=== PATIENT | female | born 1940 | race Caucasian/White ===

== ENCOUNTER 2016-10-25 12:20 | Day surgery (SDC) | payer MEDICARE, BC ==
--- OUTSIDE RECORDS SUMMARY | 2016-10-25 12:28 | XMS REPORT | Summary of Care ---
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 Discharge Diagnosis: JEFFERY (generalized anxiety disorder) Discharge Disposition: 01 Discharged to Home or Self Care Attending Physician: Kaushik Mejia MD Referring Physician: Kaushik Mejia MD Vital Signs Most recent to oldest [Reference Range]: 1 Peripheral Pulse Rate [60-100 bpm] 76 bpm (11/05/15 8:45 AM) Respiratory Rate [12-20 br/min] 19 br/min (11/05/15 8:45 AM) SpO2 96 % (11/05/15 8:45 AM) Blood Pressure [90-130/60-90 mmHg] 122/76mmHg (11/05/15 8:45 AM) Mean Arterial Pressure, Cuff 91 mmHg (11/05/15 8:45 AM) Most recent to oldest [Reference Range]: 1 Height/Length Measured 160 cm (11/05/15 8:45 AM) Weight Dosing 132.7 kg (11/05/15 8:45 AM) Weight Measured 132.7 kg (11/05/15 8:45 AM) BSA Measured 2.27 m2 (11/05/15 8:45 AM) Body Mass Index Measured 51.84 kg/m2 (11/05/15 8:45 AM) Problem List Condition Effective Dates Status Health Status Informant Benign essential Active hypertension(Confirmed) DM - Diabetes mellitus(Confirmed) Active HLD - Hyperlipidemia(Confirmed) Active Acquired hypothyroidism NOS(Confirmed) Active PERSONAL HISTORY OF MALIGNANT NEOPLASM Active OF BREAST(Confirmed)1 1ICD-9 V10.3 Allergies, Adverse Reactions, Alerts Substance Reaction Severity Status Augmentin Active Medications acebutolol 400 mg, Oral, Daily, 0 Refill(s) Start Date: 10/05/13 Stop Date: 12/18/13 Status: Discontinuedacebutolol 400 mg oral capsule 1 cap(s), Oral, Daily, # 30 cap(s), 5 Refill(s), Start Date: 06/19/14 8:21:01 JAVA CONSULTANT, Pharmacy: [place], [place] Start Date: 06/19/14 Stop Date: 12/16/14 Status: Completedacebutolol 400 mg oral capsule 1 cap(s), Oral, Daily, # 30 cap(s), 5 Refill(s), Start Date: 12/16/14 8:51:16 CDT, Pharmacy: [place], [place] Start Date: 12/16/14 Stop Date: 06/19/15 Status: Completedacebutolol 400 mg oral capsule 1 cap(s), Oral, Daily, # 30 cap(s), 5 Refill(s), Start Date: 12/18/13 15:58:00 CDT, [facility] [place] Start Date: 12/18/13 Stop Date: 06/19/14 Status: Completedacebutolol 400 mg oral capsule 1 cap(s), Oral, Daily, # 30 cap(s), 5 Refill(s), Start Date: 06/19/15 13:33:51 JAVA CONSULTANT, Pharmacy: [place], [place] Start Date: 06/19/15 Status: Orderedalbuterol CFC free 90 mcg/inh inhalation aerosol 2 puff(s), Inhale, QID, PRN for wheezing, # 9 gm, 0 Refill(s), Start Date: 11/22 16:48:00 CDT, [facility] [place] Start Date: 11/22/14 Status: Orderedaliskiren 300 mg oral tablet 1 tab(s), Oral, Daily, This is in substitution of tekturna, # 30 tab(s), 2 Refill(s), Start Date: 07/23/15 10:54:00 JAVA CONSULTANT, Pharmacy: [place], [place] Special Instructions: This is in substitution of tekturna Start Date: 07/23/15 Stop Date: 11/11/15 Status: Completedaliskiren 300 mg oral tablet 1 tab(s), Oral, Daily, This is in substitution of tekturna, # 30 tab(s), 5 Refill(s), Start Date: 11/11/15 9:48:38 CDT, Pharmacy: [place], [place] Special Instructions: This is in substitution of tekturna Start Date: 11/11/15 Stop Date: 11/11/15 Status: DiscontinuedALPRAZolam 0.25 mg oral tablet 1 tab(s), Oral, TID, PRN for anxiety, faxed to [facility]) [phone], # 90 tab(s), 0 Refill(s) Special Instructions: faxed to [facility]) [phone] Start Date: 10/25/13 Stop Date: 11/19/13 Status: CompletedALPRAZolam 0.25 mg oral tablet 1 tab(s), Oral, TID, PRN for anxiety, faxed to [facility]) [phone], # 90 tab(s), 2 Refill(s), Start Date: 09/16/14 9:57:10 CDT Special Instructions: [facility] [phone] Start Date: 09/16/14 Stop Date: 12/19/14 Status: CompletedALPRAZolam 0.25 mg oral tablet 1 tab(s), Oral, TID, PRN for anxiety, faxed to [facility]) [phone], # 90 tab(s), 2 Refill(s), Start Date: 09/15/15 16:34:41 CDT Special Instructions: faxed to [facility]) [phone] Start Date: 09/15/15 Status: OrderedALPRAZolam 0.25 mg oral tablet 1 tab(s), Oral, TID, PRN for anxiety, faxed to [facility] ([facility]) [phone], # 90 tab(s), 0 Refill(s) Special Instructions: faxed to [facility]) [phone] Start Date: 11/19/13 Stop Date: 12/21/13 Status: CompletedALPRAZolam 0.25 mg oral tablet 1 tab(s), Oral, TID, PRN for anxiety, faxed to [facility]) [phone], # 90 tab(s), 0 Refill(s), Start Date: 03/18/14 15:41:27 CDT Special Instructions: [facility] [phone] Start Date: 03/18/14 Stop Date: 04/22/14 Status: CompletedALPRAZolam 0.25 mg oral tablet 1 tab(s), Oral, TID, PRN for anxiety, faxed to [facility]) [phone], # 90 tab(s), 0 Refill(s), Start Date: 04/22/14 14:59:13 JAVA CONSULTANT Special Instructions: [facility] [phone] Start Date: 04/22/14 Stop Date: 05/20/14 Status: CompletedALPRAZolam 0.25 mg oral tablet 1 tab(s), Oral, TID, PRN for anxiety, [facility] [phone], # 90 tab(s), 0 Refill(s), Start Date: 05/20/14 13:17:19 JAVA CONSULTANT Special Instructions: faxed to [facility]) [phone] Start Date: 05/20/14 Stop Date: 06/19/14 Status: CompletedALPRAZolam 0.25 mg oral tablet 1 tab(s), Oral, TID, PRN for anxiety, [facility] to [facility] [phone], # 90 tab(s), 2 Refill(s), Start Date: 06/19/14 8:17:06 JAVA CONSULTANT Special Instructions: faxed to [facility] ([place]) [phone] Start Date: 06/19/14 Stop Date: 09/16/14 Status: CompletedALPRAZolam 0.25 mg oral tablet 1 tab(s), Oral, TID, PRN for anxiety, faxed to [facility] ([place]) [phone], # 90 tab(s), 0 Refill(s) Special Instructions: faxed to [facility] ([place]) [phone] Start Date: 12/21/13 Stop Date: 01/21/14 Status: CompletedALPRAZolam 0.25 mg oral tablet 1 tab(s), Oral, TID, PRN for anxiety, faxed to [facility] ([place]) [phone], # 90 tab(s), 0 Refill(s) Special Instructions: faxed to [facility]) [phone] Start Date: 02/21/14 Stop Date: 03/18/14 Status: CompletedALPRAZolam 0.25 mg oral tablet 1 tab(s), Oral, TID, PRN for anxiety, faxed to [facility] ([place]) [phone], # 90 tab(s), 2 Refill(s), Start Date: 06/10/15 13:39:13 JAVA CONSULTANT Special Instructions: faxed to [facility] ([place]) [phone] Start Date: 06/10/15 Stop Date: 09/15/15 Status: CompletedALPRAZolam 0.25 mg oral tablet 1 tab(s), Oral, TID, PRN for anxiety, faxed to [facility]) [phone], # 90 tab(s), 0 Refill(s) Special Instructions: faxed to [facility] ([place]) [phone] Start Date: 09/24/13 Stop Date: 10/25/13 Status: CompletedALPRAZolam 0.25 mg oral tablet 1 tab(s), Oral, TID, PRN for anxiety, faxed to [facility] [phone], # 90 tab(s), 0 Refill(s) Special Instructions: faxed to [facility]) [phone] Start Date: 09/24/13 Stop Date: 09/24/13 Status: DiscontinuedALPRAZolam 0.25 mg oral tablet 1 tab(s), Oral, TID, PRN for anxiety, faxed to [facility]) [phone], # 90 tab(s), 2 Refill(s), Start Date: 03/20/15 13:33:01 CDT Special Instructions: faxed to [facility]) [phone] Start Date: 03/20/15 Stop Date: 06/10/15 Status: CompletedALPRAZolam 0.25 mg oral tablet 1 tab(s), Oral, TID, PRN for anxiety, faxed to [facility]) [phone], # 90 tab(s), 0 Refill(s) Special Instructions: faxed to [facility]) [phone] Start Date: 01/21/14 Stop Date: 02/21/14 Status: CompletedALPRAZolam 0.25 mg oral tablet 1 tab(s), Oral, TID, PRN for anxiety, faxed to [facility]) [phone], # 90 tab(s), 2 Refill(s), Start Date: 12/19/14 10:58:40 CDT Special Instructions: faxed to [facility]) [phone] Start Date: 12/19/14 Stop Date: 03/20/15 Status: CompletedAspirin Enteric Coated 81 mg, Oral, Daily, 0 Refill(s) Start Date: 10/08/13 Status: Orderedatorvastatin 20 mg oral tablet 1 tab(s), Oral, Daily, # 30 tab(s), 5 Refill(s), Start Date: 08/20/14 8:41:01 CDT, Pharmacy: [place], [place] Start Date: 08/20/14 Stop Date: 02/12/15 Status: Completedatorvastatin 20 mg oral tablet 1 tab(s), Oral, Daily, # 30 tab(s), 5 Refill(s), Start Date: 02/12/15 8:37:02 CDT, Pharm[place] Start Date: 02/12/15 Stop Date: 07/23/15 Status: Completedatorvastatin 20 mg oral tablet 1 tab(s), Oral, Daily, # 90 tab(s), 0 Refill(s), Pharmacy: [place] Start Date: 10/19/13 Stop Date: 10/22/14 Status: Completedatorvastatin 20 mg oral tablet 1 tab(s), Oral, Daily, # 90 tab(s), 0 Refill(s) Start Date: 10/19/13 Stop Date: 10/19/13 Status: Discontinuedatorvastatin 20 mg oral tablet 1 tab(s), Oral, Daily, # 30 tab(s), 5 Refill(s), Start Date: 08/19/14 8:52:22 CDT, [place] [facility] [place] Start Date: 08/19/14 Stop Date: 08/20/14 Status: Completedatorvastatin 20 mg oral tablet 1 tab(s), Oral, Daily, # 30 tab(s), 5 Refill(s), Start Date: 03/04/14 10:18:00 CDT, [place] [facility] [place] Start Date: 03/04/14 Stop Date: 08/19/14 Status: Completedatorvastatin 20 mg oral tablet 1 tab(s), Oral, Daily, # 30 tab(s), 5 Refill(s), Start Date: 07/23/15 10:50:37 JAVA CONSULTANT, [place] [place] Start Date: 07/23/15 Status: Orderedazithromycin 250 mg oral tablet 1 packet(s), Oral, Per Package Label, as directed on package labeling, # 6 tab(s ), 0 Refill(s), Start Date: 12/06/14 9:42:00 CDT, Pharm[place]: [place] Special Instructions: as directed on package labeling Start Date: 12/06/14 Stop Date: 01/09/15 Status: CompletedAzithromycin 5 Day Dose Pack 250 mg oral tablet 1 packet(s), Oral, Per Package Label, as directed on package labeling, # 6 tab(s ), 0 Refill(s), Start Date: 11/01/14 11:27:00 CDT, Pharmacy: [place] Special Instructions: as directed on package labeling Start Date: 11/01/14 Stop Date: 11/22/14 Status: CompletedAzithromycin 5 Day Dose Pack 250 mg oral tablet 1 packet(s), Oral, Per Package Label, as directed on package labeling, # 6 tab(s ), 0 Refill(s), Pharmacy: [facility] Special Instructions: as directed on package labeling Start Date: 01/22/14 Stop Date: 10/22/14 Status: CompletedbusPIRone 10 mg, Oral, TID, 0 Refill(s) Start Date: 10/05/13 Stop Date: 12/18/13 Status: DiscontinuedbusPIRone 10 mg oral tablet 0.5tab, Oral, TID, # 45 tab(s), 5 Refill(s), Start Date: 12/16/14 8:53:01 CDT, Pharmacy: [facility] Start Date: 12/16/14 Stop Date: 06/16/15 Status: CompletedbusPIRone 10 mg oral tablet 0.5tab, Oral, TID, # 45 tab(s), 5 Refill(s), Start Date: 12/18/13 8:17:00 CDT, Pharmacy: [facility] Start Date: 12/18/13 Stop Date: 06/17/14 Status: CompletedbusPIRone 10 mg oral tablet 0.5tab, Oral, TID, # 45 tab(s), 5 Refill(s), Start Date: 06/17/14 9:15:29 JAVA CONSULTANT, Pharmacy: [place] Start Date: 06/17/14 Stop Date: 12/16/14 Status: CompletedbusPIRone 10 mg oral tablet 0.5tab, Oral, TID, # 45 tab(s), 5 Refill(s), Start Date: 06/16/15 8:39:44 JAVA CONSULTANT, Pharmacy: [place], [place] Start Date: 06/16/15 Status: Orderedcefdinir 300 mg oral capsule 1 cap(s), Oral, q12hr, # 20 cap(s), 0 Refill(s), [facility] [place] Start Date: 12/13/13 Stop Date: 01/22/14 Status: Completeddiazepam 5 mg oral tablet 1 tab(s), Oral, TID, PRN forback pain, # 15 tab(s), 0 Refill(s) Start Date: 10/05/13 Stop Date: 10/08/13 Status: Completeddiazepam 5 mg oral tablet 1 tab(s), Oral, TID, PRN forback pain, [facility] [phone], # 15 tab(s), 0 Refill(s) Special Instructions: faxed to [facility]) [phone] Start Date: 10/08/13 Stop Date: 10/18/13 Status: Completeddiazepam 5 mg oral tablet 1 tab(s), Oral, TID, PRN forback pain, faxed to [facility]) [phone], # 15 tab(s), 0 Refill(s) Special Instructions: [facility] [phone] Start Date: 10/18/13 Stop Date: 11/22/14 Status: Discontinuedhydrochlorothiazide 25 mg oral tablet 1 tab(s), Oral, Daily, # 30 tab(s), 5 Refill(s), Start Date: 10/20/15 9:40:15 CDT, Pharmacy: [place] Start Date: 10/20/15 Status: Orderedhydrochlorothiazide 25 mg oral tablet 1 tab(s), Oral, Daily, # 30 tab(s), 5 Refill(s), Start Date: 10/19/13 10:23:00 CDT, Pharmacy: [place] Start Date: 10/19/13 Stop Date: 04/17/14 Status: Completedhydrochlorothiazide 25 mg oral tablet 1 tab(s), Oral, Daily, # 30 tab(s), 5 Refill(s) Start Date: 10/19/13 Stop Date: 10/19/13 Status: Discontinuedhydrochlorothiazide 25 mg oral tablet 1 tab(s), Oral, Daily, # 30 tab(s), 5 Refill(s), Start Date: 04/18/15 7:50:21 JAVA CONSULTANT, Pharmacy: [place] Start Date: 04/18/15 Stop Date: 10/20/15 Status: Completedhydrochlorothiazide 25 mg oral tablet 1 tab(s), Oral, Daily, # 30 tab(s), 5 Refill(s), Start Date: 04/17/14 8:42:55 JAVA CONSULTANT, Pharmacy: [place] Start Date: 04/17/14 Stop Date: 10/14/14 Status: Completedhydrochlorothiazide 25 mg oral tablet 1 tab(s), Oral, Daily, # 30 tab(s), 5 Refill(s), Start Date: 10/14/14 8:42:56 CDT, Pharmacy: [place] Start Date: 10/14/14 Stop Date: 04/18/15 Status: CompletedHYDROcodone-acetaminophen 10 mg-325 mg oral tablet 1 tab(s), Oral, q4hr, X 7 days, # 15 tab(s), 0 Refill(s) Start Date: 10/05/13 Stop Date: 10/08/13 Status: CompletedHYDROcodone-acetaminophen 10 mg-325 mg oral tablet 1 tab(s), Oral, q4hr, faxed to [facility]) [phone], X 7 days, # 15 tab( s), 0 Refill(s) Special Instructions: faxed to [facility]) [phone] Start Date: 10/08/13 Stop Date: 10/15/13 Status: CompletedHYDROcodone-acetaminophen 10 mg-325 mg oral tablet 1 tab(s), Oral, q4hr, PRN for pain, faxed to [facility] [phone], # 15 tab(s), 0 Refill(s) Special Instructions: faxed to [facility] [phone] Start Date: 10/18/13 Stop Date: 11/22/14 Status: DiscontinuedHYDROcodone-acetaminophen 10 mg-325 mg oral tablet 1 tab(s), Oral, q4hr, PRN for pain, 0 Refill(s) Start Date: 10/18/13 Stop Date: 10/18/13 Status: Discontinuedlevothyroxine 175 mcg (0.175 mg) oral tablet 1 tab(s), Oral, Daily, # 30 tab(s), 5 Refill(s), Start Date: 08/20/14 8:40:46 CDT, Pharmacy: [place] Start Date: 08/20/14 Stop Date: 02/12/15 Status: Completedlevothyroxine 175 mcg (0.175 mg) oral tablet 1 tab(s), Oral, Daily, # 30 tab(s), 2 Refill(s), [facility] [place] Start Date: 11/19/13 Stop Date: 02/15/14 Status: Completedlevothyroxine 175 mcg (0.175 mg) oral tablet 1 tab(s), Oral, Daily, # 30 tab(s), 5 Refill(s), Start Date: 02/12/15 8:36:39 CDT, [facility] [place] Start Date: 02/12/15 Stop Date: 07/23/15 Status: Completedlevothyroxine 175 mcg (0.175 mg) oral tablet 1 tab(s), Oral, Daily, # 30 tab(s), 5 Refill(s), Start Date: 08/19/14 8:52:14 CDT, Pharmacy: [place] Start Date: 08/19/14 Stop Date: 08/20/14 Status: Completedlevothyroxine 175 mcg (0.175 mg) oral tablet 1 tab(s), Oral, Daily, # 90 tab(s), 0 Refill(s) Start Date: 10/08/13 Stop Date: 11/19/13 Status: Discontinuedlevothyroxine 175 mcg (0.175 mg) oral tablet 1 tab(s), Oral, Daily, # 30 tab(s), 5 Refill(s), Start Date: 02/15/14 10:02:02 CDT, Pharmacy: [place] Start Date: 02/15/14 Stop Date: 08/19/14 Status: Completedlevothyroxine 175 mcg (0.175 mg) oral tablet 1 tab(s), Oral, Daily, # 30 tab(s), 5 Refill(s), Start Date: 07/23/15 10:50:26 JAVA CONSULTANT, [place] [facility] [place] Start Date: 07/23/15 Status: Orderedlisinopril 40 mg, Oral, Daily, 0 Refill(s) Start Date: 10/05/13 Stop Date: 12/18/13 Status: Discontinuedlisinopril 40 mg oral tablet 1 tab(s), Oral, Daily, # 30 tab(s), 5 Refill(s), Start Date: 12/16/14 8:52:38 CDT, Pharm[place] [facility] [place] Start Date: 12/16/14 Stop Date: 06/16/15 Status: Completedlisinopril 40 mg oral tablet 1 tab(s), Oral, Daily, # 30 tab(s), 5 Refill(s), Start Date: 12/18/13 8:17:00 CDT, [facility] [place] Start Date: 12/18/13 Stop Date: 06/17/14 Status: Completedlisinopril 40 mg oral tablet 1 tab(s), Oral, Daily, # 30 tab(s), 5 Refill(s), Start Date: 06/17/14 9:15:14 JAVA CONSULTANT, [place] [facility] [place] Start Date: 06/17/14 Stop Date: 12/16/14 Status: Completedlisinopril 40 mg oral tablet 1 tab(s), Oral, Daily, # 30 tab(s), 5 Refill(s), Start Date: 06/16/15 8:39:32 JAVA CONSULTANT, [place] [facility] [place] Start Date: 06/16/15 Status: Orderedloratadine 10 mg oral tablet 1 tab(s), Oral, Daily, # 30 tab(s), 0 Refill(s), Start Date: 11/22/14 16:48:00 CDT, [facility] [place] Start Date: 11/22/14 Stop Date: 01/09/15 Status: DiscontinuedmetFORMIN 1,000 mg, Oral, 0 Refill(s) Start Date: 10/05/13 Stop Date: 12/18/13 Status: DiscontinuedmetFORMIN 1000 mg oral tablet 1 tab(s), Oral, BID, # 60 tab(s), 5 Refill(s), Start Date: 12/17/14 9:38:11 CDT , [facility] [place] Start Date: 12/17/14 Stop Date: 06/16/15 Status: CompletedmetFORMIN 1000 mg oral tablet 1 tab(s), Oral, BID, # 60 tab(s), 5 Refill(s), Start Date: 06/17/14 9:15:40 JAVA CONSULTANT , [facility] [place] Start Date: 06/17/14 Stop Date: 12/17/14 Status: CompletedmetFORMIN 1000 mg oral tablet 1 tab(s), Oral, BID, # 60 tab(s), 5 Refill(s), Start Date: 12/18/13 8:17:00 CDT , [facility] [place] Start Date: 12/18/13 Stop Date: 06/17/14 Status: CompletedmetFORMIN 1000 mg oral tablet 1 tab(s), Oral, BID, # 60 tab(s), 5 Refill(s), Start Date: 06/16/15 8:40:01 JAVA CONSULTANT , Pharmacy: [place] Start Date: 06/16/15 Status: OrderedmetFORMIN 1000 mg oral tablet 1 tab(s), Oral, BID, # 60 tab(s), 5 Refill(s), Start Date: 12/17/14 9:27:09 CDT Start Date: 12/17/14 Stop Date: 12/17/14 Status: Completednystatin 100,000 units/g topical powder See Instructions, Apply to affected area 2 or 3 times daily., # 15 gm, 0 Refill( s), Start Date: 10/22/14 10:34:00 CDT, [facility] [place] Special Instructions: Apply to affected area 2 or 3 times daily. Start Date: 10/22/14 Stop Date: 11/22/14 Status: DiscontinuedOne Touch Ultra 2 Test Strips 3 Month Supply, Subcutaneous, BID, Test blood sugar twice daily, # 1 QS, 1 Refill(s), [facility] [place], Supply Special Instructions: Test blood sugar twice daily Start Date: 03/04/14 Stop Date: 03/14/15 Status: DiscontinuedOne Touch Ultra Blue Test Strips 200 each, Subcutaneous, BID, DX:e11.9, # 2 boxes, 2 Refill(s), [facility] [place] Special Instructions: DX:e11.9 Start Date: 06/19/15 Stop Date: 07/23/15 Status: CompletedOne Touch Ultra Blue Test Strips 200 each, Subcutaneous, BID, # 2 boxes, 2 Refill(s), [place], Supply Start Date: 03/14/15 Stop Date: 06/19/15 Status: CompletedOne Touch Ultra Blue Test Strips 200 EA, Subcutaneous, BID, # 2 boxes, 0 Refill(s), Supply Start Date: 03/14/15 Stop Date: 03/14/15 Status: DiscontinuedOne Touch Ultra Blue Test Strips 200 each, Subcutaneous, BID, DX:e11.9, # 2 boxes, 2 Refill(s), [facility] [place] Supply Special Instructions: DX:e11.9 Start Date: 07/23/15 Status: Orderedranitidine 150 mg oral tablet 1 tab(s), Oral, BID, # 60 tab(s), 5 Refill(s), Start Date: 12/18/13 8:21:00 CDT , [place] [facility] [place] Start Date: 12/18/13 Stop Date: 06/17/14 Status: Completedranitidine 150 mg oral tablet 1 tab(s), Oral, BID, # 60 tab(s), 5 Refill(s), Start Date: 12/16/14 8:51:58 CDT , [facility] [facility] Start Date: 12/16/14 Stop Date: 06/16/15 Status: Completedranitidine 150 mg oral tablet 1 tab(s), Oral, BID, # 60 tab(s), 5 Refill(s), Start Date: 06/16/15 8:39:52 JAVA CONSULTANT , Pharmacy: [place] Start Date: 06/16/15 Stop Date: 11/05/15 Status: Discontinuedranitidine 150 mg oral tablet 1 tab(s), Oral, BID, # 60 tab(s), 5 Refill(s), Start Date: 06/17/14 9:13:56 JAVA CONSULTANT , [place] [facility] [place] Start Date: 06/17/14 Stop Date: 12/16/14 Status: Completedsertraline 100 mg oral tablet 1 tab(s), Oral, Daily, # 30 tab(s), 5 Refill(s), Start Date: 10/20/15 9:40:24 CDT, [place]acy[place] [facility] [place] Start Date: 10/20/15 Status: Orderedsertraline 100 mg oral tablet 1 tab(s), Oral, Daily, # 30 tab(s), 5 Refill(s), Start Date: 10/19/13 10:22:00 CDT, [place]acy[place] [facility] [place] Start Date: 10/19/13 Stop Date: 04/17/14 Status: Completedsertraline 100 mg oral tablet 1 tab(s), Oral, Daily, # 30 tab(s), 5 Refill(s), Start Date: 04/18/15 7:50:37 JAVA CONSULTANT, [place]acy[place] [facility] [place] Start Date: 04/18/15 Stop Date: 10/20/15 Status: Completedsertraline 100 mg oral tablet 1 tab(s), Oral, Daily, # 30 tab(s), 5 Refill(s), Start Date: 04/17/14 8:43:04 JAVA CONSULTANT, [place]acy[place] [facility] Start Date: 04/17/14 Stop Date: 10/14/14 Status: Completedsertraline 100 mg oral tablet 1 tab(s), Oral, Daily, # 30 tab(s), 5 Refill(s), Start Date: 10/14/14 8:42:41 CDT, [place] [facility] [place] Start Date: 10/14/14 Stop Date: 04/18/15 Status: Completedsertraline 100 mg oral tablet 1 tab(s), Oral, Daily, # 30 tab(s), 0 Refill(s) Start Date: 10/08/13 Stop Date: 10/19/13 Status: DiscontinuedTekturna 300 mg oral tablet 1 tab(s), Oral, Daily, # 30 tab(s), 5 Refill(s), Start Date: 12/16/14 8:52:16 CDT, [place] [facility] [place] Start Date: 12/16/14 Stop Date: 06/10/15 Status: CompletedTekturna 300 mg oral tablet 1 tab(s), Oral, Daily, # 30 tab(s), 0 Refill(s) Start Date: 10/08/13 Stop Date: 12/20/13 Status: DiscontinuedTekturna 300 mg oral tablet 1 tab(s), Oral, Daily, # 30 tab(s), 5 Refill(s), Start Date: 12/20/13 9:40:00 CDT, [place] [facility] [place] Start Date: 12/20/13 Stop Date: 06/17/14 Status: CompletedTekturna 300 mg oral tablet 1 tab(s), Oral, Daily, # 30 tab(s), 5 Refill(s), Start Date: 06/10/15 13:38:43 JAVA CONSULTANT, [place] [facility] [place] Start Date: 06/10/15 Stop Date: 11/11/15 Status: CompletedTekturna 300 mg oral tablet 1 tab(s), Oral, Daily, # 30 tab(s), 5 Refill(s), Start Date: 06/17/14 9:14:19 JAVA CONSULTANT, [place]acy[place] [facility] Start Date: 06/17/14 Stop Date: 12/16/14 Status: CompletedTekturna 300 mg oral tablet 1 tab(s), Oral, Daily, # 30 tab(s), 5 Refill(s), Start Date: 11/11/15 13:45:38 CDT, [facility] [place] Start Date: 11/11/15 Status: Ordered Results Patient Viewable Results Most recent to oldest [Reference Range]: 1 Glycated Hemoglobin [4.5-6.2 %] 7.5 % *HI* (11/05/15 10:29 AM) Estimated Average Glucose [64-120 mg/dL] 164 mg/dL *HI* (11/05/15 10:29 AM) Immunizations No data available for this section Procedures Procedure Date Related Diagnosis Body Site Cholecystectomy Knee replacement Lumpectomy Tonsillectomy and adenoidectomy Social History No data available for this section Assessment and Plan No data available for this section
--- OUTSIDE RECORDS SUMMARY | 2016-10-25 12:28 | XMS REPORT | Continuity of Care Document ---
:1940 Author Organization [facility] ([facility]) Address [address] [place] [address] Phone [phone] Care Team Providers Name Role Phone Unavailable Primary Care Provider Unavailable Source Comments This disclosure is being made pursuant to the Care Everywhere program, applicable federal and state laws, and may not contain all informaitonavailable regarding this patient.[facility] ([facility]) Active Allergies and Adverse Reactions Not on File Current Medications Not on file Active Problems Not on file Social History Tobacco Use Types Packs/Day Years Used Date Never Assessed Plan of Care Health Maintenance Due Date Last Done Comments Hepatitis B Vaccine (1 of 3 - Primary Series) 1940 Tdap Vaccine 12/15/1950 Lipid Disorder Screening 12/15/1957 Td Vaccine 12/15/1957 Mammogram 1979 Colonoscopy 12/15/1989 Zoster Vaccine 1999 Osteoporosis Screening (DXA Bone Density) 12/15/2004 Pneumococcal Vaccine (1 of 2 - PCV13) 12/15/2004 HCC Annual Coding Diabetes without Complication 06/13/2015 Influenza Vaccine: Seasonal (#1) 01/12/2016 Results from Last 3 Months Not on file
--- OUTSIDE RECORDS SUMMARY | 2016-10-25 12:28 | XMS REPORT | Summary of Care ---
:1940 Author Organization [facility] Address [address] [place] [id number] Care Team Providers Name Role Phone Kaushik Mejia Primary Care Physician Encounter Date(s): 11/05/15 - 11/05/[address] [address] [facility] Discharge Diagnosis: Essential (primary) [...] cap(s), 5 Refill(s), Start Date: 06/19/14 8:21:01 PRESCRIPTION BENEFIT SPECIALIST, Pharmacy: [place], [place] Start Date: 06/19/14 Stop Date: 12/16/14 Status: Completedacebutolol 400 mg oral capsule 1 cap(s), Oral, Daily, # 30 cap(s), 5 Refill(s), Start Date: 12/16/14 8:51:16 CDT, Pharmacy: [place], [place] Start Date: 12/16/14 Stop Date: 06/19/15 Status: Completedacebutolol 400 mg oral capsule 1 cap(s), Oral, Daily, # 30 cap(s), 5 Refill(s), Start Date: 12/18/13 15:58:00 CDT, [facility] [place] Start Date: 12/18/13 Stop Date: 06/19/14 Status: Completedacebutolol 400 mg oral capsule 1 cap(s), Oral, Daily, # 30 cap(s), 5 Refill(s), Start Date: 06/19/15 13:33:51 PRESCRIPTION BENEFIT SPECIALIST, Pharmacy: [place], [place] Start Date: 06/19/15 Status: Orderedalbuterol CFC free 90 mcg/inh inhalation aerosol 2 puff(s), Inhale, QID, PRN for wheezing, # 9 gm, 0 Refill(s), Start Date: 11/22 16:48:00 CDT, [facility] [place] Start Date: 11/22/14 Status: Orderedaliskiren 300 mg oral tablet 1 tab(s), Oral, Daily, This is in substitution of tekturna, # 30 tab(s), 2 Refill(s), Start Date: 07/23/15 10:54:00 PRESCRIPTION BENEFIT SPECIALIST, Pharmacy: [place], [place] Special Instructions: This is in substitution of tekturna Start Date: 07/23/15 Stop Date: 11/11/15 Status: Completedaliskiren 300 mg oral tablet 1 tab(s), Oral, Daily, This is in substitution of tekturna, # 30 tab(s), 5 Refill(s), Start Date: 11/11/15 9:48:38 CDT, Pharmacy: [place], [place] Special Instructions: This is in substitution of tekturna Start Date: 11/11/15 Stop Date: 11/11/15 Status: DiscontinuedALPRAZolam 0.25 mg oral tablet 1 tab(s), Oral, TID, PRN for anxiety, [facility] [phone], # 90 tab(s), 0 Refill(s) Special Instructions: faxed to [facility] [phone] Start Date: 10/25/13 Stop Date: 11/19/13 Status: CompletedALPRAZolam 0.25 mg oral tablet 1 tab(s), Oral, TID, PRN for anxiety, faxed to [facility] [phone], # 90 tab(s), 2 Refill(s), Start Date: 09/16/14 9:57:10 CDT Special Instructions: [facility] [phone] Start Date: 09/16/14 Stop Date: 12/19/14 Status: CompletedALPRAZolam 0.25 mg oral tablet 1 tab(s), Oral, TID, PRN for anxiety, faxed to [facility] [phone], # 90 tab(s), 2 Refill(s), Start Date: 09/15/15 16:34:41 CDT Special Instructions: faxed to [facility] [phone] Start Date: 09/15/15 Status: OrderedALPRAZolam 0.25 mg oral tablet 1 tab(s), Oral, TID, PRN for anxiety, faxed to [facility] ([place]) [phone], # 90 tab(s), 0 Refill(s) Special Instructions: faxed to [facility] [phone] Start Date: 11/19/13 Stop Date: 12/21/13 Status: CompletedALPRAZolam 0.25 mg oral tablet 1 tab(s), Oral, TID, PRN for anxiety, faxed to [facility] [place] [phone], # 90 tab(s), 0 Refill(s), Start Date: 03/18/14 15:41:27 CDT Special Instructions: [facility] [place] [phone] Start Date: 03/18/14 Stop Date: 04/22/14 Status: CompletedALPRAZolam 0.25 mg oral tablet 1 tab(s), Oral, TID, PRN for anxiety, faxed to [facility] [phone], # 90 tab(s), 0 Refill(s), Start Date: 04/22/14 14:59:13 PRESCRIPTION BENEFIT SPECIALIST Special Instructions: [facility] [phone] Start Date: 04/22/14 Stop Date: 05/20/14 Status: CompletedALPRAZolam 0.25 mg oral tablet 1 tab(s), Oral, TID, PRN for anxiety, [facility] [phone], # 90 tab(s), 0 Refill(s), Start Date: 05/20/14 13:17:19 PRESCRIPTION BENEFIT SPECIALIST Special Instructions: faxed to [facility] [place] [phone] Start Date: 05/20/14 Stop Date: 06/19/14 Status: CompletedALPRAZolam 0.25 mg oral tablet 1 tab(s), Oral, TID, PRN for anxiety, [facility] [phone], # 90 tab(s), 2 Refill(s), Start Date: 06/19/14 8:17:06 PRESCRIPTION BENEFIT SPECIALIST Special Instructions: faxed to [facility] ([place]) [phone] Start Date: 06/19/14 Stop Date: 09/16/14 Status: CompletedALPRAZolam 0.25 mg oral tablet 1 tab(s), Oral, TID, PRN for anxiety, faxed to [facility] ([place]) [phone], # 90 tab(s), 0 Refill(s) Special Instructions: faxed to [facility] ([place]) [phone] Start Date: 12/21/13 Stop Date: 01/21/14 Status: CompletedALPRAZolam 0.25 mg oral tablet 1 tab(s), Oral, TID, PRN for anxiety, faxed to [facility] ([place]) [phone], # 90 tab(s), 0 Refill(s) Special Instructions: faxed to [facility] [phone] Start Date: 02/21/14 Stop Date: 03/18/14 Status: CompletedALPRAZolam 0.25 mg oral tablet 1 tab(s), Oral, TID, PRN for anxiety, faxed to [facility] ([place]) [phone], # 90 tab(s), 2 Refill(s), Start Date: 06/10/15 13:39:13 PRESCRIPTION BENEFIT SPECIALIST Special Instructions: faxed to [facility] ([place]) [phone] Start Date: 06/10/15 Stop Date: 09/15/15 Status: CompletedALPRAZolam 0.25 mg oral tablet 1 tab(s), Oral, TID, PRN for anxiety, faxed to [facility] ([facility]) [phone], # 90 tab(s), 0 Refill(s) Special Instructions: faxed to [facility] ([place]) [phone] Start Date: 09/24/13 Stop Date: 10/25/13 Status: CompletedALPRAZolam 0.25 mg oral tablet 1 tab(s), Oral, TID, PRN for anxiety, faxed to [facility] ([facility]) [phone], # 90 tab(s), 0 Refill(s) Special Instructions: faxed to [facility] [phone] Start Date: 09/24/13 Stop Date: 09/24/13 Status: DiscontinuedALPRAZolam 0.25 mg oral tablet 1 tab(s), Oral, TID, PRN for anxiety, faxed to [facility] [phone], # 90 tab(s), 2 Refill(s), Start Date: 03/20/15 13:33:01 CDT Special Instructions: faxed to [facility] [phone] Start Date: 03/20/15 Stop Date: 06/10/15 Status: CompletedALPRAZolam 0.25 mg oral tablet 1 tab(s), Oral, TID, PRN for anxiety, faxed to [facility] [phone], # 90 tab(s), 0 Refill(s) Special Instructions: faxed to [facility] [phone] Start Date: 01/21/14 Stop Date: 02/21/14 Status: CompletedALPRAZolam 0.25 mg oral tablet 1 tab(s), Oral, TID, PRN for anxiety, faxed to [facility] [phone], # 90 tab(s), 2 Refill(s), Start Date: 12/19/14 10:58:40 CDT Special Instructions: faxed to [facility] [phone] Start Date: 12/19/14 Stop Date: 03/20/15 Status: CompletedAspirin Enteric Coated 81 mg, Oral, Daily, 0 Refill(s) Start Date: 10/08/13 Status: Orderedatorvastatin 20 mg oral tablet 1 tab(s), Oral, Daily, # 30 tab(s), 5 Refill(s), Start Date: 08/20/14 8:41:01 CDT, Pharmacy: [place], [place] Start Date: 08/20/14 Stop Date: 02/12/15 Status: Completedatorvastatin 20 mg oral tablet 1 tab(s), Oral, Daily, # 30 tab(s), 5 Refill(s), Start Date: 02/12/15 8:37:02 CDT, [place] [facility] Start Date: 02/12/15 Stop Date: 07/23/15 Status: Completedatorvastatin 20 mg oral tablet 1 tab(s), Oral, Daily, # 90 tab(s), 0 Refill(s), Pharmacy: [facility] Start Date: 10/19/13 Stop Date: 10/22/14 Status: Completedatorvastatin 20 mg oral tablet 1 tab(s), Oral, Daily, # 90 tab(s), 0 Refill(s) Start Date: 10/19/13 Stop Date: 10/19/13 Status: Discontinuedatorvastatin 20 mg oral tablet 1 tab(s), Oral, Daily, # 30 tab(s), 5 Refill(s), Start Date: 08/19/14 8:52:22 CDT, Pharm[place] Start Date: 08/19/14 Stop Date: 08/20/14 Status: Completedatorvastatin 20 mg oral tablet 1 tab(s), Oral, Daily, # 30 tab(s), 5 Refill(s), Start Date: 03/04/14 10:18:00 CDT, Pharm[place] [facility] Start Date: 03/04/14 Stop Date: 08/19/14 Status: Completedatorvastatin 20 mg oral tablet 1 tab(s), Oral, Daily, # 30 tab(s), 5 Refill(s), Start Date: 07/23/15 10:50:37 PRESCRIPTION BENEFIT SPECIALIST, [place] [facility] Start Date: 07/23/15 Status: Orderedazithromycin 250 mg oral tablet 1 packet(s), Oral, Per Package Label, as directed on package labeling, # 6 tab(s ), 0 Refill(s), Start Date: 12/06/14 9:42:00 CDT, [place] [facility] Special Instructions: as directed on package labeling Start Date: 12/06/14 Stop Date: 01/09/15 Status: CompletedAzithromycin 5 Day Dose Pack 250 mg oral tablet 1 packet(s), Oral, Per Package Label, as directed on package labeling, # 6 tab(s ), 0 Refill(s), Start Date: 11/01/14 11:27:00 CDT, Pharmacy: [facility] Special Instructions: as directed on package labeling Start Date: 11/01/14 Stop Date: 11/22/14 Status: CompletedAzithromycin 5 Day Dose Pack 250 mg oral tablet 1 packet(s), Oral, Per Package Label, as directed on package labeling, # 6 tab(s ), 0 Refill(s), Pharmacy: [facility] Special Instructions: as directed on package labeling Start Date: 01/22/14 Stop Date: 10/22/14 Status: CompletedbusPIRone 10 mg, Oral, TID, 0 Refill(s) Start Date: 10/05/13 Stop Date: 12/18/13 Status: DiscontinuedbusPIRone 10 mg oral tablet 0.5tab, Oral, TID, # 45 tab(s), 5 Refill(s), Start Date: 12/16/14 8:53:01 CDT, Pharmacy: [facility] Start Date: 12/16/14 Stop Date: 06/16/15 Status: CompletedbusPIRone 10 mg oral tablet 0.5tab, Oral, TID, # 45 tab(s), 5 Refill(s), Start Date: 12/18/13 8:17:00 CDT, Pharmacy: [facility] Start Date: 12/18/13 Stop Date: 06/17/14 Status: CompletedbusPIRone 10 mg oral tablet 0.5tab, Oral, TID, # 45 tab(s), 5 Refill(s), Start Date: 06/17/14 9:15:29 PRESCRIPTION BENEFIT SPECIALIST, Pharmacy: [facility] Start Date: 06/17/14 Stop Date: 12/16/14 Status: CompletedbusPIRone 10 mg oral tablet 0.5tab, Oral, TID, # 45 tab(s), 5 Refill(s), Start Date: 06/16/15 8:39:44 PRESCRIPTION BENEFIT SPECIALIST, [place]acy[place] [place] Start Date: 06/16/15 Status: Orderedcefdinir 300 mg oral capsule 1 cap(s), Oral, q12hr, # 20 cap(s), 0 Refill(s), [facility] [place] Start Date: 12/13/13 Stop Date: 01/22/14 Status: Completeddiazepam 5 mg oral tablet 1 tab(s), Oral, TID, PRN forback pain, # 15 tab(s), 0 Refill(s) Start Date: 10/05/13 Stop Date: 10/08/13 Status: Completeddiazepam 5 mg oral tablet 1 tab(s), Oral, TID, PRN forback pain, [facility] [phone], # 15 tab(s), 0 Refill(s) Special Instructions: faxed to [facility] [phone] Start Date: 10/08/13 Stop Date: 10/18/13 Status: Completeddiazepam 5 mg oral tablet 1 tab(s), Oral, TID, PRN forback pain, faxed to [facility] [phone], # 15 tab(s), 0 Refill(s) Special Instructions: [facility] [phone] Start Date: 10/18/13 Stop Date: 11/22/14 Status: Discontinuedhydrochlorothiazide 25 mg oral tablet 1 tab(s), Oral, Daily, # 30 tab(s), 5 Refill(s), Start Date: 10/20/15 9:40:15 CDT, Pharmacy: [place] Start Date: 10/20/15 Status: Orderedhydrochlorothiazide 25 mg oral tablet 1 tab(s), Oral, Daily, # 30 tab(s), 5 Refill(s), Start Date: 10/19/13 10:23:00 CDT, Pharmacy: [place] Start Date: 10/19/13 Stop Date: 04/17/14 Status: Completedhydrochlorothiazide 25 mg oral tablet 1 tab(s), Oral, Daily, # 30 tab(s), 5 Refill(s) Start Date: 10/19/13 Stop Date: 10/19/13 Status: Discontinuedhydrochlorothiazide 25 mg oral tablet 1 tab(s), Oral, Daily, # 30 tab(s), 5 Refill(s), Start Date: 04/18/15 7:50:21 PRESCRIPTION BENEFIT SPECIALIST, Pharmacy: [place] Start Date: 04/18/15 Stop Date: 10/20/15 Status: Completedhydrochlorothiazide 25 mg oral tablet 1 tab(s), Oral, Daily, # 30 tab(s), 5 Refill(s), Start Date: 04/17/14 8:42:55 PRESCRIPTION BENEFIT SPECIALIST, Pharmacy: [place] Start Date: 04/17/14 Stop Date: 10/14/14 Status: Completedhydrochlorothiazide 25 mg oral tablet 1 tab(s), Oral, Daily, # 30 tab(s), 5 Refill(s), Start Date: 10/14/14 8:42:56 CDT, Pharmacy: [place] Start Date: 10/14/14 Stop Date: 04/18/15 Status: CompletedHYDROcodone-acetaminophen 10 mg-325 mg oral tablet 1 tab(s), Oral, q4hr, X 7 days, # 15 tab(s), 0 Refill(s) Start Date: 10/05/13 Stop Date: 10/08/13 Status: CompletedHYDROcodone-acetaminophen 10 mg-325 mg oral tablet 1 tab(s), Oral, q4hr, faxed to [facility] [phone], X 7 days, # 15 tab( s), 0 Refill(s) Special Instructions: faxed to [facility] [phone] Start Date: 10/08/13 Stop Date: 10/15/13 Status: CompletedHYDROcodone-acetaminophen 10 mg-325 mg oral tablet 1 tab(s), Oral, q4hr, PRN for pain, faxed to [facility] [phone], # 15 tab(s), 0 Refill(s) Special Instructions: faxed to [facility] [phone] Start Date: 10/18/13 Stop Date: 11/22/14 Status: DiscontinuedHYDROcodone-acetaminophen 10 mg-325 mg oral tablet 1 tab(s), Oral, q4hr, PRN for pain, 0 Refill(s) Start Date: 10/18/13 Stop Date: 10/18/13 Status: Discontinuedlevothyroxine 175 mcg (0.175 mg) oral tablet 1 tab(s), Oral, Daily, # 30 tab(s), 5 Refill(s), Start Date: 08/20/14 8:40:46 CDT, Pharmacy: [place] Start Date: 08/20/14 Stop Date: 02/12/15 Status: Completedlevothyroxine 175 mcg (0.175 mg) oral tablet 1 tab(s), Oral, Daily, # 30 tab(s), 2 Refill(s), [facility] [place] Start Date: 11/19/13 Stop Date: 02/15/14 Status: Completedlevothyroxine 175 mcg (0.175 mg) oral tablet 1 tab(s), Oral, Daily, # 30 tab(s), 5 Refill(s), Start Date: 02/12/15 8:36:39 CDT, [facility] [place] Start Date: 02/12/15 Stop Date: 07/23/15 Status: Completedlevothyroxine 175 mcg (0.175 mg) oral tablet 1 tab(s), Oral, Daily, # 30 tab(s), 5 Refill(s), Start Date: 08/19/14 8:52:14 CDT, Pharmacy: [place] Start Date: 08/19/14 Stop Date: 08/20/14 Status: Completedlevothyroxine 175 mcg (0.175 mg) oral tablet 1 tab(s), Oral, Daily, # 90 tab(s), 0 Refill(s) Start Date: 10/08/13 Stop Date: 11/19/13 Status: Discontinuedlevothyroxine 175 mcg (0.175 mg) oral tablet 1 tab(s), Oral, Daily, # 30 tab(s), 5 Refill(s), Start Date: 02/15/14 10:02:02 CDT, Pharm[place] Start Date: 02/15/14 Stop Date: 08/19/14 Status: Completedlevothyroxine 175 mcg (0.175 mg) oral tablet 1 tab(s), Oral, Daily, # 30 tab(s), 5 Refill(s), Start Date: 07/23/15 10:50:26 PRESCRIPTION BENEFIT SPECIALIST, Pharm[place] Start Date: 07/23/15 Status: Orderedlisinopril 40 mg, Oral, Daily, 0 Refill(s) Start Date: 10/05/13 Stop Date: 12/18/13 Status: Discontinuedlisinopril 40 mg oral tablet 1 tab(s), Oral, Daily, # 30 tab(s), 5 Refill(s), Start Date: 12/16/14 8:52:38 CDT, Pharmacy[place] Start Date: 12/16/14 Stop Date: 06/16/15 Status: Completedlisinopril 40 mg oral tablet 1 tab(s), Oral, Daily, # 30 tab(s), 5 Refill(s), Start Date: 12/18/13 8:17:00 CDT, [facility] [place] Start Date: 12/18/13 Stop Date: 06/17/14 Status: Completedlisinopril 40 mg oral tablet 1 tab(s), Oral, Daily, # 30 tab(s), 5 Refill(s), Start Date: 06/17/14 9:15:14 PRESCRIPTION BENEFIT SPECIALIST, Pharmacy[place] Start Date: 06/17/14 Stop Date: 12/16/14 Status: Completedlisinopril 40 mg oral tablet 1 tab(s), Oral, Daily, # 30 tab(s), 5 Refill(s), Start Date: 06/16/15 8:39:32 PRESCRIPTION BENEFIT SPECIALIST, Pharm[place] Start Date: 06/16/15 Status: Orderedloratadine 10 mg oral tablet 1 tab(s), Oral, Daily, # 30 tab(s), 0 Refill(s), Start Date: 11/22/14 16:48:00 CDT, [facility] [place] Start Date: 11/22/14 Stop Date: 01/09/15 Status: DiscontinuedmetFORMIN 1,000 mg, Oral, 0 Refill(s) Start Date: 10/05/13 Stop Date: 12/18/13 Status: DiscontinuedmetFORMIN 1000 mg oral tablet 1 tab(s), Oral, BID, # 60 tab(s), 5 Refill(s), Start Date: 12/17/14 9:38:11 CDT , [facility] [place] Start Date: 12/17/14 Stop Date: 06/16/15 Status: CompletedmetFORMIN 1000 mg oral tablet 1 tab(s), Oral, BID, # 60 tab(s), 5 Refill(s), Start Date: 06/17/14 9:15:40 PRESCRIPTION BENEFIT SPECIALIST , [facility] [place] Start Date: 06/17/14 Stop Date: 12/17/14 Status: CompletedmetFORMIN 1000 mg oral tablet 1 tab(s), Oral, BID, # 60 tab(s), 5 Refill(s), Start Date: 12/18/13 8:17:00 CDT , [facility] [place] Start Date: 12/18/13 Stop Date: 06/17/14 Status: CompletedmetFORMIN 1000 mg oral tablet 1 tab(s), Oral, BID, # 60 tab(s), 5 Refill(s), Start Date: 06/16/15 8:40:01 PRESCRIPTION BENEFIT SPECIALIST , Pharmacy: [place] Start Date: 06/16/15 Status: OrderedmetFORMIN 1000 mg oral tablet 1 tab(s), Oral, BID, # 60 tab(s), 5 Refill(s), Start Date: 12/17/14 9:27:09 CDT Start Date: 12/17/14 Stop Date: 12/17/14 Status: Completednystatin 100,000 units/g topical powder See Instructions, Apply to affected area 2 or 3 times daily., # 15 gm, 0 Refill( s), Start Date: 10/22/14 10:34:00 CDT, [facility] [place] Special Instructions: Apply to affected area 2 or 3 times daily. Start Date: 10/22/14 Stop Date: 11/22/14 Status: DiscontinuedOne Touch Ultra 2 Test Strips 3 Month Supply, Subcutaneous, BID, Test blood sugar twice daily, # 1 QS, 1 Refill(s), [facility] [place], Supply Special Instructions: Test blood sugar twice daily Start Date: 03/04/14 Stop Date: 03/14/15 Status: DiscontinuedOne Touch Ultra Blue Test Strips 200 each, Subcutaneous, BID, DX:e11.9, # 2 boxes, 2 Refill(s), [facility] [place] Supply Special Instructions: DX:e11.9 Start Date: 06/19/15 Stop Date: 07/23/15 Status: CompletedOne Touch Ultra Blue Test Strips 200 each, Subcutaneous, BID, # 2 boxes, 2 Refill(s), [place], Supply Start Date: 03/14/15 Stop Date: 06/19/15 Status: CompletedOne Touch Ultra Blue Test Strips 200 EA, Subcutaneous, BID, # 2 boxes, 0 Refill(s), Supply Start Date: 03/14/15 Stop Date: 03/14/15 Status: DiscontinuedOne Touch Ultra Blue Test Strips 200 each, Subcutaneous, BID, DX:e11.9, # 2 boxes, 2 Refill(s), [facility] [place] Supply Special Instructions: DX:e11.9 Start Date: 07/23/15 Status: Orderedranitidine 150 mg oral tablet 1 tab(s), Oral, BID, # 60 tab(s), 5 Refill(s), Start Date: 12/18/13 8:21:00 CDT , Pharmacy: [place] Start Date: 12/18/13 Stop Date: 06/17/14 Status: Completedranitidine 150 mg oral tablet 1 tab(s), Oral, BID, # 60 tab(s), 5 Refill(s), Start Date: 12/16/14 8:51:58 CDT , [place] [facility] Start Date: 12/16/14 Stop Date: 06/16/15 Status: Completedranitidine 150 mg oral tablet 1 tab(s), Oral, BID, # 60 tab(s), 5 Refill(s), Start Date: 06/16/15 8:39:52 PRESCRIPTION BENEFIT SPECIALIST , Pharmacy[place] [facility] Start Date: 06/16/15 Stop Date: 11/05/15 Status: Discontinuedranitidine 150 mg oral tablet 1 tab(s), Oral, BID, # 60 tab(s), 5 Refill(s), Start Date: 06/17/14 9:13:56 PRESCRIPTION BENEFIT SPECIALIST , [place] Start Date: 06/17/14 Stop Date: 12/16/14 Status: Completedsertraline 100 mg oral tablet 1 tab(s), Oral, Daily, # 30 tab(s), 5 Refill(s), Start Date: 10/20/15 9:40:24 CDT, Pharmacy[place] Start Date: 10/20/15 Status: Orderedsertraline 100 mg oral tablet 1 tab(s), Oral, Daily, # 30 tab(s), 5 Refill(s), Start Date: 10/19/13 10:22:00 CDT, Pharmacy[place] Start Date: 10/19/13 Stop Date: 04/17/14 Status: Completedsertraline 100 mg oral tablet 1 tab(s), Oral, Daily, # 30 tab(s), 5 Refill(s), Start Date: 04/18/15 7:50:37 PRESCRIPTION BENEFIT SPECIALIST, Pharmacy[place] Start Date: 04/18/15 Stop Date: 10/20/15 Status: Completedsertraline 100 mg oral tablet 1 tab(s), Oral, Daily, # 30 tab(s), 5 Refill(s), Start Date: 04/17/14 8:43:04 PRESCRIPTION BENEFIT SPECIALIST, Pharmacy[place] Start Date: 04/17/14 Stop Date: 10/14/14 Status: Completedsertraline 100 mg oral tablet 1 tab(s), Oral, Daily, # 30 tab(s), 5 Refill(s), Start Date: 10/14/14 8:42:41 CDT, Pharmacy[place] Start Date: 10/14/14 Stop Date: 04/18/15 Status: Completedsertraline 100 mg oral tablet 1 tab(s), Oral, Daily, # 30 tab(s), 0 Refill(s) Start Date: 10/08/13 Stop Date: 10/19/13 Status: DiscontinuedTekturna 300 mg oral tablet 1 tab(s), Oral, Daily, # 30 tab(s), 5 Refill(s), Start Date: 12/16/14 8:52:16 CDT, Pharm[place] Start Date: 12/16/14 Stop Date: 06/10/15 Status: CompletedTekturna 300 mg oral tablet 1 tab(s), Oral, Daily, # 30 tab(s), 0 Refill(s) Start Date: 10/08/13 Stop Date: 12/20/13 Status: DiscontinuedTekturna 300 mg oral tablet 1 tab(s), Oral, Daily, # 30 tab(s), 5 Refill(s), Start Date: 12/20/13 9:40:00 CDT, [place] Start Date: 12/20/13 Stop Date: 06/17/14 Status: CompletedTekturna 300 mg oral tablet 1 tab(s), Oral, Daily, # 30 tab(s), 5 Refill(s), Start Date: 06/10/15 13:38:43 PRESCRIPTION BENEFIT SPECIALIST, [place]acy[place] Start Date: 06/10/15 Stop Date: 11/11/15 Status: CompletedTekturna 300 mg oral tablet 1 tab(s), Oral, Daily, # 30 tab(s), 5 Refill(s), Start Date: 06/17/14 9:14:19 PRESCRIPTION BENEFIT SPECIALIST, Pharmacy[place] Start Date: 06/17/14 Stop Date: 12/16/14 Status: CompletedTekturna 300 mg oral tablet 1 tab(s), Oral, Daily, # 30 tab(s), 5 Refill(s), Start Date: 11/11/15 13:45:38 CDT, [place] [facility] [place] Start Date: 11/11/15 Status: Ordered Results [...]
--- OUTSIDE RECORDS SUMMARY | 2016-10-25 12:28 | XMS REPORT | Summary of Care ---
:1940 Author Organization [facility] Address [address] [place] [address] Care Team Providers Name Role Phone Kaushik Mejia Primary Care Physician Encounter Date(s): 10/28/15 - 10/28/15 [facility] [address] [place] [address]- [facility] Discharge Disposition: 01 Discharged to Home or Self Care Attending Physician: JESSICA Hernandez Admitting Physician: JESSICA Hernandez Referring Physician: JESSICA Hernandez Vital Signs Most recent to oldest [Reference Range]: 1 Temperature Temporal Artery [36.5-38.0 DegC] 35.9 DegC *LOW* (10/28/15 9:57 AM) Peripheral Pulse Rate [60-100 bpm] 76 bpm (10/28/15 9:57 AM) Respiratory Rate [12-20 br/min] 18 br/min (10/28/15 9:57 AM) SpO2 95 % (10/28/15 9:57 AM) Blood Pressure [90-130/60-90 mmHg] 190/76mmHg *HI* (10/28/15 9:57 AM) Mean Arterial Pressure, Cuff 114 mmHg (10/28/15 9:57 AM) Most recent to oldest [Reference Range]: 1 Height/Length Measured 160 cm (10/28/15 9:57 AM) Height/Length Estimated 160 cm (10/28/15 9:57 AM) Weight Estimated 134 kg (10/28/15 9:57 AM) Weight Dosing 134 kg (10/28/15 9:57 AM) Weight Measured 134 kg (10/28/15 9:57 AM) BSA Measured 2.28 m2 (10/28/15 9:57 AM) BSA Estimated 2.44 m2 (10/28/15 9:57 AM) Body Mass Index Measured 52.34 kg/m2 (10/28/15 9:57 AM) Body Mass Index Estimated 52.34 kg/m2 (10/28/15 9:57 AM) Problem List Condition Effective Dates Status [...] cap(s), 5 Refill(s), Start Date: 06/19/14 8:21:01 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, 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[place], [place] Start Date: 06/19/14 Stop Date: 12/16/14 Status: Completedacebutolol 400 mg oral capsule 1 cap(s), Oral, Daily, # 30 cap(s), 5 Refill(s), Start Date: 12/16/14 8:51:16 CDT, Pharmacy: [place], [place] Start Date: 12/16/14 Stop Date: 06/19/15 Status: Completedacebutolol 400 mg oral capsule 1 cap(s), Oral, Daily, # 30 cap(s), 5 Refill(s), Start Date: 12/18/13 15:58:00 CDT, Pharmacy: [place], [place] Start Date: 12/18/13 Stop Date: 06/19/14 Status: Completedacebutolol 400 mg oral capsule 1 cap(s), Oral, Daily, # 30 cap(s), 5 Refill(s), Start Date: 06/19/15 13:33:51 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, 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[place], [place] Start Date: 06/19/15 Status: Orderedalbuterol CFC free 90 mcg/inh inhalation aerosol 2 puff(s), Inhale, QID, PRN for wheezing, # 9 gm, 0 Refill(s), Start Date: 11/22 16:48:00 CDT, Pharmacy: [place], [place] Start Date: 11/22/14 Status: Orderedaliskiren 300 mg oral tablet 1 tab(s), Oral, Daily, This is in substitution of tekturna, # 30 tab(s), 2 Refill(s), Start Date: 07/23/15 10:54:00 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, 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[place], [place] Special Instructions: This is in substitution of tekturna Start Date: 07/23/15 Status: OrderedALPRAZolam 0.25 mg oral tablet 1 tab(s), Oral, TID, PRN for anxiety, [facility] [phone], # 90 tab(s), 0 Refill(s) Special Instructions: faxed to [facility] [phone] Start Date: 10/25/13 Stop Date: 11/19/13 Status: CompletedALPRAZolam 0.25 mg oral tablet 1 tab(s), Oral, TID, PRN for anxiety, faxed to [facility] [phone], # 90 tab(s), 2 Refill(s), Start Date: 09/16/14 9:57:10 CDT Special Instructions: [facility] [phone] Start Date: 09/16/14 Stop Date: 12/19/14 Status: CompletedALPRAZolam 0.25 mg oral tablet 1 tab(s), Oral, TID, PRN for anxiety, faxed to [facility] [phone], # 90 tab(s), 2 Refill(s), Start Date: 09/15/15 16:34:41 CDT Special Instructions: faxed to [facility] [phone] Start Date: 09/15/15 Status: OrderedALPRAZolam 0.25 mg oral tablet 1 tab(s), Oral, TID, PRN for anxiety, faxed to [facility] ([place]) [phone], # 90 tab(s), 0 Refill(s) Special Instructions: faxed to [facility] ([place]) [phone] Start Date: 11/19/13 Stop Date: 12/21/13 Status: CompletedALPRAZolam 0.25 mg oral tablet 1 tab(s), Oral, TID, PRN for anxiety, faxed to [facility] ([place]) [phone], # 90 tab(s), 0 Refill(s), Start Date: 03/18/14 15:41:27 CDT Special Instructions: faxed to [facility] ([place]) [phone] Start Date: 03/18/14 Stop Date: 04/22/14 Status: CompletedALPRAZolam 0.25 mg oral tablet 1 tab(s), Oral, TID, PRN for anxiety, faxed to [facility] ([place]) [phone], # 90 tab(s), 0 Refill(s), Start Date: 04/22/14 14:59:13 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 Special Instructions: faxed to [facility] ([place]) [phone] Start Date: 04/22/14 Stop Date: 05/20/14 Status: CompletedALPRAZolam 0.25 mg oral tablet 1 tab(s), Oral, TID, PRN for anxiety, faxed to [facility] ([place]) [phone], # 90 tab(s), 0 Refill(s), Start Date: 05/20/14 13:17:19 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 Special Instructions: faxed to [facility] ([place]) [phone] Start Date: 05/20/14 Stop Date: 06/19/14 Status: CompletedALPRAZolam 0.25 mg oral tablet 1 tab(s), Oral, TID, PRN for anxiety, [facility] [phone], # 90 tab(s), 2 Refill(s), Start Date: 06/19/14 8:17:06 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 Special Instructions: [facility] to [facility] [phone] Start Date: 06/19/14 Stop Date: 09/16/14 Status: CompletedALPRAZolam 0.25 mg oral tablet 1 tab(s), Oral, TID, PRN for anxiety, [place]ed to [facility] [phone], # 90 tab(s), 0 Refill(s) Special Instructions: faxed to [facility] [phone] Start Date: 12/21/13 Stop Date: 01/21/14 Status: CompletedALPRAZolam 0.25 mg oral tablet 1 tab(s), Oral, TID, PRN for anxiety, faxed to [facility] [phone], # 90 tab(s), 0 Refill(s) Special Instructions: faxed to [facility] [phone] Start Date: 02/21/14 Stop Date: 03/18/14 Status: CompletedALPRAZolam 0.25 mg oral tablet 1 tab(s), Oral, TID, PRN for anxiety, faxed to [facility] [phone], # 90 tab(s), 2 Refill(s), Start Date: 06/10/15 13:39:13 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 Special Instructions: faxed to [facility] [phone] Start Date: 06/10/15 Stop Date: 09/15/15 Status: CompletedALPRAZolam 0.25 mg oral tablet 1 tab(s), Oral, TID, PRN for anxiety, faxed to [facility]) [phone], # 90 tab(s), 0 Refill(s) Special Instructions: faxed to [facility] [phone] Start Date: 09/24/13 Stop Date: 10/25/13 Status: CompletedALPRAZolam 0.25 mg oral tablet 1 tab(s), Oral, TID, PRN for anxiety, faxed to [facility]) [phone], # 90 tab(s), 0 Refill(s) Special Instructions: faxed to [facility] [phone] Start Date: 09/24/13 Stop Date: 09/24/13 Status: DiscontinuedALPRAZolam 0.25 mg oral tablet 1 tab(s), Oral, TID, PRN for anxiety, faxed to [facility] [phone], # 90 tab(s), 2 Refill(s), Start Date: 03/20/15 13:33:01 CDT Special Instructions: faxed to [facility] [phone] Start Date: 03/20/15 Stop Date: 06/10/15 Status: CompletedALPRAZolam 0.25 mg oral tablet 1 tab(s), Oral, TID, PRN for anxiety, [facility] [phone], # 90 tab(s), 0 Refill(s) Special Instructions: faxed to [facility] [phone] Start Date: 01/21/14 Stop Date: 02/21/14 Status: CompletedALPRAZolam 0.25 mg oral tablet 1 tab(s), Oral, TID, PRN for anxiety, [facility] [phone], # 90 tab(s), 2 Refill(s), Start Date: 12/19/14 10:58:40 CDT Special Instructions: faxed to [facility] [phone] Start Date: 12/19/14 Stop Date: 03/20/15 Status: CompletedAspirin Enteric Coated 81 mg, Oral, Daily, 0 Refill(s) Start Date: 10/08/13 Status: Orderedatorvastatin 20 mg oral tablet 1 tab(s), Oral, Daily, # 30 tab(s), 5 Refill(s), Start Date: 08/20/14 8:41:01 CDT, Pharmacy: [place], [place] Start Date: 08/20/14 Stop Date: 02/12/15 Status: Completedatorvastatin 20 mg oral tablet 1 tab(s), Oral, Daily, # 30 tab(s), 5 Refill(s), Start Date: 02/12/15 8:37:02 CDT, [facility] [place] Start Date: 02/12/15 Stop Date: 07/23/15 Status: Completedatorvastatin 20 mg oral tablet 1 tab(s), Oral, Daily, # 90 tab(s), 0 Refill(s), [place] Start Date: 10/19/13 Stop Date: 10/22/14 Status: Completedatorvastatin 20 mg oral tablet 1 tab(s), Oral, Daily, # 90 tab(s), 0 Refill(s) Start Date: 10/19/13 Stop Date: 10/19/13 Status: Discontinuedatorvastatin 20 mg oral tablet 1 tab(s), Oral, Daily, # 30 tab(s), 5 Refill(s), Start Date: 08/19/14 8:52:22 CDT, [facility] [place] Start Date: 08/19/14 Stop Date: 08/20/14 Status: Completedatorvastatin 20 mg oral tablet 1 tab(s), Oral, Daily, # 30 tab(s), 5 Refill(s), Start Date: 03/04/14 10:18:00 CDT, 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, [place] Start Date: 07/23/15 Status: Orderedazithromycin 250 mg oral tablet 1 packet(s), Oral, Per Package Label, as directed on package labeling, # 6 tab(s ), 0 Refill(s), Start Date: 12/06/14 9:42:00 CDT, [place] Special Instructions: as directed on package labeling Start Date: 12/06/14 Stop Date: 01/09/15 Status: CompletedAzithromycin 5 Day Dose Pack 250 mg oral tablet 1 packet(s), Oral, Per Package Label, as directed on package labeling, # 6 tab(s ), 0 Refill(s), Start Date: 11/01/14 11:27:00 CDT, [facility] [place] Special Instructions: as directed on package labeling Start Date: 11/01/14 Stop Date: 11/22/14 Status: CompletedAzithromycin 5 Day Dose Pack 250 mg oral tablet 1 packet(s), Oral, Per Package Label, as directed on package labeling, # 6 tab(s ), 0 Refill(s), Pharmacy: [place] Special Instructions: as directed on package labeling Start Date: 01/22/14 Stop Date: 10/22/14 Status: CompletedbusPIRone 10 mg, Oral, TID, 0 Refill(s) Start Date: 10/05/13 Stop Date: 12/18/13 Status: DiscontinuedbusPIRone 10 mg oral tablet 0.5tab, Oral, TID, # 45 tab(s), 5 Refill(s), Start Date: 12/16/14 8:53:01 CDT, [place] Start Date: 12/16/14 Stop Date: 06/16/15 Status: CompletedbusPIRone 10 mg oral tablet 0.5tab, Oral, TID, # 45 tab(s), 5 Refill(s), Start Date: 12/18/13 8:17:00 CDT, [facility] [place] Start Date: 12/18/13 Stop Date: 06/17/14 Status: CompletedbusPIRone 10 mg oral tablet 0.5tab, Oral, TID, # 45 tab(s), 5 Refill(s), Start Date: 06/17/14 9:15:29 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, [place] Start Date: 06/17/14 Stop Date: 12/16/14 Status: CompletedbusPIRone 10 mg oral tablet 0.5tab, Oral, TID, # 45 tab(s), 5 Refill(s), Start Date: 06/16/15 8:39:44 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, [place] Start Date: 06/16/15 Status: Orderedcefdinir 300 mg oral capsule 1 cap(s), Oral, q12hr, # 20 cap(s), 0 Refill(s), Pharmacy: [place], [place] Start Date: 12/13/13 Stop Date: 01/22/14 Status: Completeddiazepam 5 mg oral tablet 1 tab(s), Oral, TID, PRN forback pain, # 15 tab(s), 0 Refill(s) Start Date: 10/05/13 Stop Date: 10/08/13 Status: Completeddiazepam 5 mg oral tablet 1 tab(s), Oral, TID, PRN forback pain, [facility] [phone], # 15 tab(s), 0 Refill(s) Special Instructions: [facility] [phone] Start Date: 10/08/13 Stop Date: 10/18/13 Status: Completeddiazepam 5 mg oral tablet 1 tab(s), Oral, TID, PRN forback pain, faxed to [facility] [phone], # 15 tab(s), 0 Refill(s) Special Instructions: [facility] to [facility] [phone] Start Date: 10/18/13 Stop Date: 11/22/14 Status: Discontinuedhydrochlorothiazide 25 mg oral tablet 1 tab(s), Oral, Daily, # 30 tab(s), 5 Refill(s), Start Date: 10/20/15 9:40:15 CDT, Pharmacy: [place] Start Date: 10/20/15 Status: Orderedhydrochlorothiazide 25 mg oral tablet 1 tab(s), Oral, Daily, # 30 tab(s), 5 Refill(s), Start Date: 10/19/13 10:23:00 CDT, Pharmacy: [place] Start Date: 10/19/13 Stop Date: 04/17/14 Status: Completedhydrochlorothiazide 25 mg oral tablet 1 tab(s), Oral, Daily, # 30 tab(s), 5 Refill(s) Start Date: 10/19/13 Stop Date: 10/19/13 Status: Discontinuedhydrochlorothiazide 25 mg oral tablet 1 tab(s), Oral, Daily, # 30 tab(s), 5 Refill(s), Start Date: 04/18/15 7:50:21 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, Pharmacy: [place] Start Date: 04/18/15 Stop Date: 10/20/15 Status: Completedhydrochlorothiazide 25 mg oral tablet 1 tab(s), Oral, Daily, # 30 tab(s), 5 Refill(s), Start Date: 04/17/14 8:42:55 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, Pharmacy: [place] Start Date: 04/17/14 Stop Date: 10/14/14 Status: Completedhydrochlorothiazide 25 mg oral tablet 1 tab(s), Oral, Daily, # 30 tab(s), 5 Refill(s), Start Date: 10/14/14 8:42:56 CDT, Pharmacy: [place] Start Date: 10/14/14 Stop Date: 04/18/15 Status: CompletedHYDROcodone-acetaminophen 10 mg-325 mg oral tablet 1 tab(s), Oral, q4hr, X 7 days, # 15 tab(s), 0 Refill(s) Start Date: 10/05/13 Stop Date: 10/08/13 Status: CompletedHYDROcodone-acetaminophen 10 mg-325 mg oral tablet 1 tab(s), Oral, q4hr, [facility] [phone], X 7 days, # 15 tab( s), 0 Refill(s) Special Instructions: faxed to [facility] [phone] Start Date: 10/08/13 Stop Date: 10/15/13 Status: CompletedHYDROcodone-acetaminophen 10 mg-325 mg oral tablet 1 tab(s), Oral, q4hr, PRN for pain, faxed to [facility] [phone], # 15 tab(s), 0 Refill(s) Special Instructions: faxed to [facility] [phone] Start Date: 10/18/13 Stop Date: 11/22/14 Status: DiscontinuedHYDROcodone-acetaminophen 10 mg-325 mg oral tablet 1 tab(s), Oral, q4hr, PRN for pain, 0 Refill(s) Start Date: 10/18/13 Stop Date: 10/18/13 Status: Discontinuedlevothyroxine 175 mcg (0.175 mg) oral tablet 1 tab(s), Oral, Daily, # 30 tab(s), 5 Refill(s), Start Date: 08/20/14 8:40:46 CDT, [facility] [place] Start Date: 08/20/14 Stop Date: 02/12/15 Status: Completedlevothyroxine 175 mcg (0.175 mg) oral tablet 1 tab(s), Oral, Daily, # 30 tab(s), 2 Refill(s), [facility] [place] Start Date: 11/19/13 Stop Date: 02/15/14 Status: Completedlevothyroxine 175 mcg (0.175 mg) oral tablet 1 tab(s), Oral, Daily, # 30 tab(s), 5 Refill(s), Start Date: 02/12/15 8:36:39 CDT, Pharmacy: [place] Start Date: 02/12/15 Stop Date: 07/23/15 Status: Completedlevothyroxine 175 mcg (0.175 mg) oral tablet 1 tab(s), Oral, Daily, # 30 tab(s), 5 Refill(s), Start Date: 08/19/14 8:52:14 CDT, Pharmacy: [place] Start Date: 08/19/14 Stop Date: 08/20/14 Status: Completedlevothyroxine 175 mcg (0.175 mg) oral tablet 1 tab(s), Oral, Daily, # 90 tab(s), 0 Refill(s) Start Date: 10/08/13 Stop Date: 11/19/13 Status: Discontinuedlevothyroxine 175 mcg (0.175 mg) oral tablet 1 tab(s), Oral, Daily, # 30 tab(s), 5 Refill(s), Start Date: 02/15/14 10:02:02 CDT, Pharmacy: [place] Start Date: 02/15/14 Stop Date: 08/19/14 Status: Completedlevothyroxine 175 mcg (0.175 mg) oral tablet 1 tab(s), Oral, Daily, # 30 tab(s), 5 Refill(s), Start Date: 07/23/15 10:50:26 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, Pharmacy[place] Start Date: 07/23/15 Status: Orderedlisinopril 40 mg, Oral, Daily, 0 Refill(s) Start Date: 10/05/13 Stop Date: 12/18/13 Status: Discontinuedlisinopril 40 mg oral tablet 1 tab(s), Oral, Daily, # 30 tab(s), 5 Refill(s), Start Date: 12/16/14 8:52:38 CDT, [place] Start Date: 12/16/14 Stop Date: 06/16/15 Status: Completedlisinopril 40 mg oral tablet 1 tab(s), Oral, Daily, # 30 tab(s), 5 Refill(s), Start Date: 12/18/13 8:17:00 CDT, [place] Start Date: 12/18/13 Stop Date: 06/17/14 Status: Completedlisinopril 40 mg oral tablet 1 tab(s), Oral, Daily, # 30 tab(s), 5 Refill(s), Start Date: 06/17/14 9:15:14 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, [place]acy[place] Start Date: 06/17/14 Stop Date: 12/16/14 Status: Completedlisinopril 40 mg oral tablet 1 tab(s), Oral, Daily, # 30 tab(s), 5 Refill(s), Start Date: 06/16/15 8:39:32 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, [place] Start Date: 06/16/15 Status: Orderedloratadine 10 mg oral tablet 1 tab(s), Oral, Daily, # 30 tab(s), 0 Refill(s), Start Date: 11/22/14 16:48:00 CDT, [place]acy[place] Start Date: 11/22/14 Stop Date: 01/09/15 Status: DiscontinuedmetFORMIN 1,000 mg, Oral, 0 Refill(s) Start Date: 10/05/13 Stop Date: 12/18/13 Status: DiscontinuedmetFORMIN 1000 mg oral tablet 1 tab(s), Oral, BID, # 60 tab(s), 5 Refill(s), Start Date: 12/17/14 9:38:11 CDT , [place] Start Date: 12/17/14 Stop Date: 06/16/15 Status: CompletedmetFORMIN 1000 mg oral tablet 1 tab(s), Oral, BID, # 60 tab(s), 5 Refill(s), Start Date: 06/17/14 9:15:40 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 [place] Start Date: 06/17/14 Stop Date: 12/17/14 Status: CompletedmetFORMIN 1000 mg oral tablet 1 tab(s), Oral, BID, # 60 tab(s), 5 Refill(s), Start Date: 12/18/13 8:17:00 CDT , [facility] [place] Start Date: 12/18/13 Stop Date: 06/17/14 Status: CompletedmetFORMIN 1000 mg oral tablet 1 tab(s), Oral, BID, # 60 tab(s), 5 Refill(s), Start Date: 06/16/15 8:40:01 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 , [facility] [place] Start Date: 06/16/15 Status: OrderedmetFORMIN 1000 mg oral tablet 1 tab(s), Oral, BID, # 60 tab(s), 5 Refill(s), Start Date: 12/17/14 9:27:09 CDT Start Date: 12/17/14 Stop Date: 12/17/14 Status: Completednystatin 100,000 units/g topical powder See Instructions, Apply to affected area 2 or 3 times daily., # 15 gm, 0 Refill( s), Start Date: 10/22/14 10:34:00 CDT, [place] Special Instructions: Apply to affected area 2 or 3 times daily. Start Date: 10/22/14 Stop Date: 11/22/14 Status: DiscontinuedOne Touch Ultra 2 Test Strips 3 Month Supply, Subcutaneous, BID, Test blood sugar twice daily, # 1 QS, 1 Refill(s), [facility] [place] Special Instructions: Test blood sugar twice daily Start Date: 03/04/14 Stop Date: 03/14/15 Status: DiscontinuedOne Touch Ultra Blue Test Strips 200 each, Subcutaneous, BID, DX:e11.9, # 2 boxes, 2 Refill(s), [facility] [place] Special Instructions: [id number]:[id number] Start Date: 06/19/15 Stop Date: 07/23/15 Status: CompletedOne Touch Ultra Blue Test Strips 200 each, Subcutaneous, BID, # 2 boxes, 2 Refill(s), [facility] [place] Start Date: 03/14/15 Stop Date: 06/19/15 Status: CompletedOne Touch Ultra Blue Test Strips 200 EA, Subcutaneous, BID, # 2 boxes, 0 Refill(s), Supply Start Date: 03/14/15 Stop Date: 03/14/15 Status: DiscontinuedOne Touch Ultra Blue Test Strips 200 each, Subcutaneous, BID, DX:e11.9, # 2 boxes, 2 Refill(s), [facility] [place] Special Instructions: [id number] Start Date: 07/23/15 Status: Orderedranitidine 150 mg oral tablet 1 tab(s), Oral, BID, # 60 tab(s), 5 Refill(s), Start Date: 12/18/13 8:21:00 CDT , [facility] [place] Start Date: 12/18/13 Stop Date: 06/17/14 Status: Completedranitidine 150 mg oral tablet 1 tab(s), Oral, BID, # 60 tab(s), 5 Refill(s), Start Date: 12/16/14 8:51:58 CDT , [place] Start Date: 12/16/14 Stop Date: 06/16/15 Status: Completedranitidine 150 mg oral tablet 1 tab(s), Oral, BID, # 60 tab(s), 5 Refill(s), Start Date: 06/16/15 8:39:52 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 , [place]acy[place] Start Date: 06/16/15 Status: Orderedranitidine 150 mg oral tablet 1 tab(s), Oral, BID, # 60 tab(s), 5 Refill(s), Start Date: 06/17/14 9:13:56 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 , [place]acy[place] Start Date: 06/17/14 Stop Date: 12/16/14 Status: Completedsertraline 100 mg oral tablet 1 tab(s), Oral, Daily, # 30 tab(s), 5 Refill(s), Start Date: 10/20/15 9:40:24 CDT, Pharmacy[place] Start Date: 10/20/15 Status: Orderedsertraline 100 mg oral tablet 1 tab(s), Oral, Daily, # 30 tab(s), 5 Refill(s), Start Date: 10/19/13 10:22:00 CDT, Pharmacy: [place] Start Date: 10/19/13 Stop Date: 04/17/14 Status: Completedsertraline 100 mg oral tablet 1 tab(s), Oral, Daily, # 30 tab(s), 5 Refill(s), Start Date: 04/18/15 7:50:37 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, Pharmacy: [place] Start Date: 04/18/15 Stop Date: 10/20/15 Status: Completedsertraline 100 mg oral tablet 1 tab(s), Oral, Daily, # 30 tab(s), 5 Refill(s), Start Date: 04/17/14 8:43:04 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, Pharmacy[place] Start Date: 04/17/14 Stop Date: 10/14/14 Status: Completedsertraline 100 mg oral tablet 1 tab(s), Oral, Daily, # 30 tab(s), 5 Refill(s), Start Date: 10/14/14 8:42:41 CDT, Pharmacy[place] Start Date: 10/14/14 Stop Date: 04/18/15 Status: Completedsertraline 100 mg oral tablet 1 tab(s), Oral, Daily, # 30 tab(s), 0 Refill(s) Start Date: 10/08/13 Stop Date: 10/19/13 Status: DiscontinuedTekturna 300 mg oral tablet 1 tab(s), Oral, Daily, # 30 tab(s), 5 Refill(s), Start Date: 12/16/14 8:52:16 CDT, [place] Start Date: 12/16/14 Stop Date: 06/10/15 Status: CompletedTekturna 300 mg oral tablet 1 tab(s), Oral, Daily, # 30 tab(s), 0 Refill(s) Start Date: 10/08/13 Stop Date: 12/20/13 Status: DiscontinuedTekturna 300 mg oral tablet 1 tab(s), Oral, Daily, # 30 tab(s), 5 Refill(s), Start Date: 12/20/13 9:40:00 CDT, [place] Start Date: 12/20/13 Stop Date: 06/17/14 Status: CompletedTekturna 300 mg oral tablet 1 tab(s), Oral, Daily, # 30 tab(s), 5 Refill(s), Start Date: 06/10/15 13:38:43 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, [facility] [place] Start Date: 06/10/15 Status: OrderedTekturna 300 mg oral tablet 1 tab(s), Oral, Daily, # 30 tab(s), 5 Refill(s), Start Date: 06/17/14 9:14:19 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, [place] Start Date: 06/17/14 Stop Date: 12/16/14 Status: Completed Results Patient Viewable Results Most recent to oldest [Reference Range]: 1 Estimated Creatinine Clearance 79.57 mL/min (10/28/15 9:58 AM) Immunizations No data available for this section Procedures Procedure Date Related Diagnosis Body Site Cholecystectomy Knee replacement Lumpectomy Tonsillectomy and adenoidectomy Social History No data available for this section Assessment and Plan No data available for this section
--- OUTSIDE RECORDS SUMMARY | 2016-10-25 12:29 | XMS REPORT | Summary of Care ---
:1940 Author Organization Address [address] [place] [id number]- Care Team Providers Name Role Phone Kaushik Mejia Primary Care Physician Encounter Date(s): 10/28/15 - 10/28/[address] [id number]- [facility] Discharge Disposition: 01 Discharged to Home or Self Care Attending Physician: JESSICA Hernandez Admitting Physician: JESSICA Hernandez Vital Signs No data available for this section Problem List Condition Effective Dates Status Health [...] cap(s), 5 Refill(s), Start Date: 06/19/14 8:21:01 BRUSHER TENDER, Pharmacy: [address], [place] Start Date: 06/19/14 Stop Date: 12/16/14 Status: Completedacebutolol 400 mg oral capsule 1 cap(s), Oral, Daily, # 30 cap(s), 5 Refill(s), Start Date: 12/16/14 8:51:16 CDT, Pharmacy: [address], [place] Start Date: 12/16/14 Stop Date: 06/19/15 Status: Completedacebutolol 400 mg oral capsule 1 cap(s), Oral, Daily, # 30 cap(s), 5 Refill(s), Start Date: 12/18/13 15:58:00 CDT, Pharmacy: [place], [place] Start Date: 12/18/13 Stop Date: 06/19/14 Status: Completedacebutolol 400 mg oral capsule 1 cap(s), Oral, Daily, # 30 cap(s), 5 Refill(s), Start Date: 06/19/15 13:33:51 BRUSHER TENDER, Pharmacy: [place], [place] Start Date: 06/19/15 Status: Orderedalbuterol CFC free 90 mcg/inh inhalation aerosol 2 puff(s), Inhale, QID, PRN for wheezing, # 9 gm, 0 Refill(s), Start Date: 11/22 16:48:00 CDT, Pharmacy: [place], [place] Start Date: 11/22/14 Status: Orderedaliskiren 300 mg oral tablet 1 tab(s), Oral, Daily, This is in substitution of tekturna, # 30 tab(s), 2 Refill(s), Start Date: 07/23/15 10:54:00 BRUSHER TENDER, Pharmacy: [place], [place] Special Instructions: This is in substitution of tekturna Start Date: 07/23/15 Status: OrderedALPRAZolam 0.25 mg oral tablet 1 tab(s), Oral, TID, PRN for anxiety, faxed to [facility] Richard [facility] - [facility]) [phone], # 90 tab(s), 0 Refill(s) Special Instructions: faxed to [employer] Richard [facility]auer - [facility]) [phone] Start Date: 10/25/13 Stop Date: 11/19/13 Status: CompletedALPRAZolam 0.25 mg oral tablet 1 tab(s), Oral, TID, PRN for anxiety, [facility] [phone], # 90 tab(s), 2 Refill(s), Start Date: 09/16/14 9:57:10 CDT Special Instructions: faxed to [facility]) [phone] Start Date: 09/16/14 Stop Date: 12/19/14 Status: CompletedALPRAZolam 0.25 mg oral tablet 1 tab(s), Oral, TID, PRN for anxiety, faxed to [facility]) [phone], # 90 tab(s), 2 Refill(s), Start Date: 09/15/15 16:34:41 CDT Special Instructions: faxed to [facility]) [phone] Start Date: 09/15/15 Status: OrderedALPRAZolam 0.25 mg oral tablet 1 tab(s), Oral, TID, PRN for anxiety, faxed to [facility]) [phone], # 90 tab(s), 0 Refill(s) Special Instructions: faxed to [facility]) [phone] Start Date: 11/19/13 Stop Date: 12/21/13 Status: CompletedALPRAZolam 0.25 mg oral tablet 1 tab(s), Oral, TID, PRN for anxiety, faxed to [facility]) [phone], # 90 tab(s), 0 Refill(s), Start Date: 03/18/14 15:41:27 CDT Special Instructions: faxed to [facility]) [phone] Start Date: 03/18/14 Stop Date: 04/22/14 Status: CompletedALPRAZolam 0.25 mg oral tablet 1 tab(s), Oral, TID, PRN for anxiety, faxed to [facility]) [phone], # 90 tab(s), 0 Refill(s), Start Date: 04/22/14 14:59:13 BRUSHER TENDER Special Instructions: faxed to [facility]) [phone] Start Date: 04/22/14 Stop Date: 05/20/14 Status: CompletedALPRAZolam 0.25 mg oral tablet 1 tab(s), Oral, TID, PRN for anxiety, faxed to [facility]) [phone], # 90 tab(s), 0 Refill(s), Start Date: 05/20/14 13:17:19 BRUSHER TENDER Special Instructions: faxed to [facility] [employer] Richard Pauer - [facility]) [phone] Start Date: 05/20/14 Stop Date: 06/19/14 Status: CompletedALPRAZolam 0.25 mg oral tablet 1 tab(s), Oral, TID, PRN for anxiety, faxed to [facility] Richard Pauer - [facility]) [phone], # 90 tab(s), 2 Refill(s), Start Date: 06/19/14 8:17:06 BRUSHER TENDER Special Instructions: faxed to [facility] Richard Pauer - [facility]) [phone] Start Date: 06/19/14 Stop Date: 09/16/14 Status: CompletedALPRAZolam 0.25 mg oral tablet 1 tab(s), Oral, TID, PRN for anxiety, faxed to [facility] Richard [facility] - [facility]) [phone], # 90 tab(s), 0 Refill(s) Special Instructions: faxed to [facility] Richard Pauer - [facility]) [phone] Start Date: 12/21/13 Stop Date: 01/21/14 Status: CompletedALPRAZolam 0.25 mg oral tablet 1 tab(s), Oral, TID, PRN for anxiety, faxed to [facility] [employer] ([facility]) [phone], # 90 tab(s), 0 Refill(s) Special Instructions: faxed to [facility] Richard Pauer - [facility]) [phone] Start Date: 02/21/14 Stop Date: 03/18/14 Status: CompletedALPRAZolam 0.25 mg oral tablet 1 tab(s), Oral, TID, PRN for anxiety, faxed to [facility]) [phone], # 90 tab(s), 2 Refill(s), Start Date: 06/10/15 13:39:13 BRUSHER TENDER Special Instructions: faxed to [facility]) [phone] Start Date: 06/10/15 Stop Date: 09/15/15 Status: CompletedALPRAZolam 0.25 mg oral tablet 1 tab(s), Oral, TID, PRN for anxiety, faxed to [facility] ([facility]) [phone], # 90 tab(s), 0 Refill(s) Special Instructions: faxed to [employer] [employer] Richard [facility] - [facility]) [phone] Start Date: 09/24/13 Stop Date: 10/25/13 Status: CompletedALPRAZolam 0.25 mg oral tablet 1 tab(s), Oral, TID, PRN for anxiety, faxed to [facility] ([facility]) [phone], # 90 tab(s), 0 Refill(s) Special Instructions: faxed to [facility] Richard [facility] - [facility]) [phone] Start Date: 09/24/13 Stop Date: 09/24/13 Status: DiscontinuedALPRAZolam 0.25 mg oral tablet 1 tab(s), Oral, TID, PRN for anxiety, faxed to [facility] [facility] - [facility]) [phone], # 90 tab(s), 2 Refill(s), Start Date: 03/20/15 13:33:01 CDT Special Instructions: faxed to [employer] Richard [facility]auer - [facility]) [phone] Start Date: 03/20/15 Stop Date: 06/10/15 Status: CompletedALPRAZolam 0.25 mg oral tablet 1 tab(s), Oral, TID, PRN for anxiety, faxed to [facility] Richard [facility] - [facility]) [phone], # 90 tab(s), 0 Refill(s) Special Instructions: faxed to [employer] Richard Pauer - [facility]) [phone] Start Date: 01/21/14 Stop Date: 02/21/14 Status: CompletedALPRAZolam 0.25 mg oral tablet 1 tab(s), Oral, TID, PRN for anxiety, faxed to [employer] [facility] - [facility]) [phone], # 90 tab(s), 2 Refill(s), Start Date: 12/19/14 10:58:40 CDT Special Instructions: faxed to [facility]) [phone] Start Date: 12/19/14 Stop Date: 03/20/15 Status: CompletedAspirin Enteric Coated 81 mg, Oral, Daily, 0 Refill(s) Start Date: 10/08/13 Status: Orderedatorvastatin 20 mg oral tablet 1 tab(s), Oral, Daily, # 30 tab(s), 5 Refill(s), Start Date: 08/20/14 8:41:01 CDT, [place] [facility] Start Date: 08/20/14 Stop Date: 02/12/15 Status: Completedatorvastatin 20 mg oral tablet 1 tab(s), Oral, Daily, # 30 tab(s), 5 Refill(s), Start Date: 02/12/15 8:37:02 CDT, Pharmacy: [address] Start Date: 02/12/15 Stop Date: 07/23/15 Status: Completedatorvastatin 20 mg oral tablet 1 tab(s), Oral, Daily, # 90 tab(s), 0 Refill(s), Pharmacy: [place] Start Date: 10/19/13 Stop Date: 10/22/14 Status: Completedatorvastatin 20 mg oral tablet 1 tab(s), Oral, Daily, # 90 tab(s), 0 Refill(s) Start Date: 10/19/13 Stop Date: 10/19/13 Status: Discontinuedatorvastatin 20 mg oral tablet 1 tab(s), Oral, Daily, # 30 tab(s), 5 Refill(s), Start Date: 08/19/14 8:52:22 CDT, Pharmacy: [place] Start Date: 08/19/14 Stop Date: 08/20/14 Status: Completedatorvastatin 20 mg oral tablet 1 tab(s), Oral, Daily, # 30 tab(s), 5 Refill(s), Start Date: 03/04/14 10:18:00 CDT, Pharm[place] Start Date: 03/04/14 Stop Date: 08/19/14 Status: Completedatorvastatin 20 mg oral tablet 1 tab(s), Oral, Daily, # 30 tab(s), 5 Refill(s), Start Date: 07/23/15 10:50:37 BRUSHER TENDER, Pharmacy: [address] [place] Start Date: 07/23/15 Status: Orderedazithromycin 250 mg oral tablet 1 packet(s), Oral, Per Package Label, as directed on package labeling, # 6 tab(s ), 0 Refill(s), Start Date: 12/06/14 9:42:00 CDT, [place] Special Instructions: as directed on package labeling Start Date: 12/06/14 Stop Date: 01/09/15 Status: CompletedAzithromycin 5 Day Dose Pack 250 mg oral tablet 1 packet(s), Oral, Per Package Label, as directed on package labeling, # 6 tab(s ), 0 Refill(s), Start Date: 11/01/14 11:27:00 CDT, [place] [facility] [place] Special Instructions: as directed on package labeling Start Date: 11/01/14 Stop Date: 11/22/14 Status: CompletedAzithromycin 5 Day Dose Pack 250 mg oral tablet 1 packet(s), Oral, Per Package Label, as directed on package labeling, # 6 tab(s ), 0 Refill(s), Pharmacy: [address] Special Instructions: as directed on package labeling Start Date: 01/22/14 Stop Date: 10/22/14 Status: CompletedbusPIRone 10 mg, Oral, TID, 0 Refill(s) Start Date: 10/05/13 Stop Date: 12/18/13 Status: DiscontinuedbusPIRone 10 mg oral tablet 0.5tab, Oral, TID, # 45 tab(s), 5 Refill(s), Start Date: 12/16/14 8:53:01 CDT, Pharmacy: [address] Start Date: 12/16/14 Stop Date: 06/16/15 Status: CompletedbusPIRone 10 mg oral tablet 0.5tab, Oral, TID, # 45 tab(s), 5 Refill(s), Start Date: 12/18/13 8:17:00 CDT, Pharmacy: [address] [place] Start Date: 12/18/13 Stop Date: 06/17/14 Status: CompletedbusPIRone 10 mg oral tablet 0.5tab, Oral, TID, # 45 tab(s), 5 Refill(s), Start Date: 06/17/14 9:15:29 BRUSHER TENDER, Pharmacy: [place], [place] Start Date: 06/17/14 Stop Date: 12/16/14 Status: CompletedbusPIRone 10 mg oral tablet 0.5tab, Oral, TID, # 45 tab(s), 5 Refill(s), Start Date: 06/16/15 8:39:44 BRUSHER TENDER, Pharmacy: [place], [place] Start Date: 06/16/15 Status: Orderedcefdinir 300 mg oral capsule 1 cap(s), Oral, q12hr, # 20 cap(s), 0 Refill(s), Pharmacy: [place], [place] Start Date: 12/13/13 Stop Date: 01/22/14 Status: Completeddiazepam 5 mg oral tablet 1 tab(s), Oral, TID, PRN forback pain, # 15 tab(s), 0 Refill(s) Start Date: 10/05/13 Stop Date: 10/08/13 Status: Completeddiazepam 5 mg oral tablet 1 tab(s), Oral, TID, PRN forback pain, faxed to [facility]) [phone], # 15 tab(s), 0 Refill(s) Special Instructions: faxed to [facility]) [phone] Start Date: 10/08/13 Stop Date: 10/18/13 Status: Completeddiazepam 5 mg oral tablet 1 tab(s), Oral, TID, PRN forback pain, faxed to [facility]) [phone], # 15 tab(s), 0 Refill(s) Special Instructions: faxed to [facility]) [phone] Start Date: 10/18/13 Stop Date: 11/22/14 Status: Discontinuedhydrochlorothiazide 25 mg oral tablet 1 tab(s), Oral, Daily, # 30 tab(s), 5 Refill(s), Start Date: 10/20/15 9:40:15 CDT, [facility] [place] Start Date: 10/20/15 Status: Orderedhydrochlorothiazide 25 mg oral tablet 1 tab(s), Oral, Daily, # 30 tab(s), 5 Refill(s), Start Date: 10/19/13 10:23:00 CDT, [facility] [place] Start Date: 10/19/13 Stop Date: 04/17/14 Status: Completedhydrochlorothiazide 25 mg oral tablet 1 tab(s), Oral, Daily, # 30 tab(s), 5 Refill(s) Start Date: 10/19/13 Stop Date: 10/19/13 Status: Discontinuedhydrochlorothiazide 25 mg oral tablet 1 tab(s), Oral, Daily, # 30 tab(s), 5 Refill(s), Start Date: 04/18/15 7:50:21 BRUSHER TENDER, [facility] [place] Start Date: 04/18/15 Stop Date: 10/20/15 Status: Completedhydrochlorothiazide 25 mg oral tablet 1 tab(s), Oral, Daily, # 30 tab(s), 5 Refill(s), Start Date: 04/17/14 8:42:55 BRUSHER TENDER, [facility] [place] Start Date: 04/17/14 Stop Date: 10/14/14 Status: Completedhydrochlorothiazide 25 mg oral tablet 1 tab(s), Oral, Daily, # 30 tab(s), 5 Refill(s), Start Date: 10/14/14 8:42:56 CDT, [facility] [place] Start Date: 10/14/14 Stop Date: 04/18/15 Status: CompletedHYDROcodone-acetaminophen 10 mg-325 mg oral tablet 1 tab(s), Oral, q4hr, X 7 days, # 15 tab(s), 0 Refill(s) Start Date: 10/05/13 Stop Date: 10/08/13 Status: CompletedHYDROcodone-acetaminophen 10 mg-325 mg oral tablet 1 tab(s), Oral, q4hr, faxed to [facility]) [phone], X 7 days, # 15 tab( s), 0 Refill(s) Special Instructions: faxed to [facility]auer - [facility]) [phone] Start Date: 10/08/13 Stop Date: 10/15/13 Status: CompletedHYDROcodone-acetaminophen 10 mg-325 mg oral tablet 1 tab(s), Oral, q4hr, PRN for pain, faxed to [facility] [phone], # 15 tab(s), 0 Refill(s) Special Instructions: faxed to [facility] [phone] Start Date: 10/18/13 Stop Date: 11/22/14 Status: DiscontinuedHYDROcodone-acetaminophen 10 mg-325 mg oral tablet 1 tab(s), Oral, q4hr, PRN for pain, 0 Refill(s) Start Date: 10/18/13 Stop Date: 10/18/13 Status: Discontinuedlevothyroxine 175 mcg (0.175 mg) oral tablet 1 tab(s), Oral, Daily, # 30 tab(s), 5 Refill(s), Start Date: 08/20/14 8:40:46 CDT, Pharmacy: [place], [place] Start Date: 08/20/14 Stop Date: 02/12/15 Status: Completedlevothyroxine 175 mcg (0.175 mg) oral tablet 1 tab(s), Oral, Daily, # 30 tab(s), 2 Refill(s), Pharmacy: [place], [place] Start Date: 11/19/13 Stop Date: 02/15/14 Status: Completedlevothyroxine 175 mcg (0.175 mg) oral tablet 1 tab(s), Oral, Daily, # 30 tab(s), 5 Refill(s), Start Date: 02/12/15 8:36:39 CDT, Pharmacy: [place] Start Date: 02/12/15 Stop Date: 07/23/15 Status: Completedlevothyroxine 175 mcg (0.175 mg) oral tablet 1 tab(s), Oral, Daily, # 30 tab(s), 5 Refill(s), Start Date: 08/19/14 8:52:14 CDT, [facility]: [address] Start Date: 08/19/14 Stop Date: 08/20/14 Status: Completedlevothyroxine 175 mcg (0.175 mg) oral tablet 1 tab(s), Oral, Daily, # 90 tab(s), 0 Refill(s) Start Date: 10/08/13 Stop Date: 11/19/13 Status: Discontinuedlevothyroxine 175 mcg (0.175 mg) oral tablet 1 tab(s), Oral, Daily, # 30 tab(s), 5 Refill(s), Start Date: 02/15/14 10:02:02 CDT, Pharmacy: [address] Start Date: 02/15/14 Stop Date: 08/19/14 Status: Completedlevothyroxine 175 mcg (0.175 mg) oral tablet 1 tab(s), Oral, Daily, # 30 tab(s), 5 Refill(s), Start Date: 07/23/15 10:50:26 BRUSHER TENDER, Pharm[place] Start Date: 07/23/15 Status: Orderedlisinopril 40 mg, Oral, Daily, 0 Refill(s) Start Date: 10/05/13 Stop Date: 12/18/13 Status: Discontinuedlisinopril 40 mg oral tablet 1 tab(s), Oral, Daily, # 30 tab(s), 5 Refill(s), Start Date: 12/16/14 8:52:38 CDT, Pharm[place] Start Date: 12/16/14 Stop Date: 06/16/15 Status: Completedlisinopril 40 mg oral tablet 1 tab(s), Oral, Daily, # 30 tab(s), 5 Refill(s), Start Date: 12/18/13 8:17:00 CDT, Pharm[place] Start Date: 12/18/13 Stop Date: 06/17/14 Status: Completedlisinopril 40 mg oral tablet 1 tab(s), Oral, Daily, # 30 tab(s), 5 Refill(s), Start Date: 06/17/14 9:15:14 BRUSHER TENDER, Pharmacy: [address] Start Date: 06/17/14 Stop Date: 12/16/14 Status: Completedlisinopril 40 mg oral tablet 1 tab(s), Oral, Daily, # 30 tab(s), 5 Refill(s), Start Date: 06/16/15 8:39:32 BRUSHER TENDER, [facility]acy: [address] Start Date: 06/16/15 Status: Orderedloratadine 10 mg oral tablet 1 tab(s), Oral, Daily, # 30 tab(s), 0 Refill(s), Start Date: 11/22/14 16:48:00 CDT, Pharmacy: [address] Start Date: 11/22/14 Stop Date: 01/09/15 Status: DiscontinuedmetFORMIN 1,000 mg, Oral, 0 Refill(s) Start Date: 10/05/13 Stop Date: 12/18/13 Status: DiscontinuedmetFORMIN 1000 mg oral tablet 1 tab(s), Oral, BID, # 60 tab(s), 5 Refill(s), Start Date: 12/17/14 9:38:11 CDT , Pharmacy: [address] Start Date: 12/17/14 Stop Date: 06/16/15 Status: CompletedmetFORMIN 1000 mg oral tablet 1 tab(s), Oral, BID, # 60 tab(s), 5 Refill(s), Start Date: 06/17/14 9:15:40 BRUSHER TENDER , [facility]: [address] [place] Start Date: 06/17/14 Stop Date: 12/17/14 Status: CompletedmetFORMIN 1000 mg oral tablet 1 tab(s), Oral, BID, # 60 tab(s), 5 Refill(s), Start Date: 12/18/13 8:17:00 CDT , Pharmacy: [address] Start Date: 12/18/13 Stop Date: 06/17/14 Status: CompletedmetFORMIN 1000 mg oral tablet 1 tab(s), Oral, BID, # 60 tab(s), 5 Refill(s), Start Date: 06/16/15 8:40:01 BRUSHER TENDER , Pharmacy: [place] Start Date: 06/16/15 Status: OrderedmetFORMIN 1000 mg oral tablet 1 tab(s), Oral, BID, # 60 tab(s), 5 Refill(s), Start Date: 12/17/14 9:27:09 CDT Start Date: 12/17/14 Stop Date: 12/17/14 Status: Completednystatin 100,000 units/g topical powder See Instructions, Apply to affected area 2 or 3 times daily., # 15 gm, 0 Refill( s), Start Date: 10/22/14 10:34:00 CDT, Pharmacy: [place], [place] Special Instructions: Apply to affected area 2 or 3 times daily. Start Date: 10/22/14 Stop Date: 11/22/14 Status: DiscontinuedOne Touch Ultra 2 Test Strips 3 Month Supply, Subcutaneous, BID, Test blood sugar twice daily, # 1 QS, 1 Refill(s), Pharmacy: [place], [place], Supply Special Instructions: Test blood sugar twice daily Start Date: 03/04/14 Stop Date: 03/14/15 Status: DiscontinuedOne Touch Ultra Blue Test Strips 200 each, Subcutaneous, BID, DX:e11.9, # 2 boxes, 2 Refill(s), [facility] [place] Special Instructions: DX:e11.9 Start Date: 06/19/15 Stop Date: 07/23/15 Status: CompletedOne Touch Ultra Blue Test Strips 200 each, Subcutaneous, BID, # 2 boxes, 2 Refill(s), [facility] [place] Start Date: 03/14/15 Stop Date: 06/19/15 Status: CompletedOne Touch Ultra Blue Test Strips 200 EA, Subcutaneous, BID, # 2 boxes, 0 Refill(s), Supply Start Date: 03/14/15 Stop Date: 03/14/15 Status: DiscontinuedOne Touch Ultra Blue Test Strips 200 each, Subcutaneous, BID, DX:e11.9, # 2 boxes, 2 Refill(s), [facility] [place] Special Instructions: DX:e11.9 Start Date: 07/23/15 Status: Orderedranitidine 150 mg oral tablet 1 tab(s), Oral, BID, # 60 tab(s), 5 Refill(s), Start Date: 12/18/13 8:21:00 CDT , Pharmacy: [address] Start Date: 12/18/13 Stop Date: 06/17/14 Status: Completedranitidine 150 mg oral tablet 1 tab(s), Oral, BID, # 60 tab(s), 5 Refill(s), Start Date: 12/16/14 8:51:58 CDT , Pharmacy: [address] Start Date: 12/16/14 Stop Date: 06/16/15 Status: Completedranitidine 150 mg oral tablet 1 tab(s), Oral, BID, # 60 tab(s), 5 Refill(s), Start Date: 06/16/15 8:39:52 BRUSHER TENDER , [facility]acy: [address] Start Date: 06/16/15 Status: Orderedranitidine 150 mg oral tablet 1 tab(s), Oral, BID, # 60 tab(s), 5 Refill(s), Start Date: 06/17/14 9:13:56 BRUSHER TENDER , [facility]: [address] Start Date: 06/17/14 Stop Date: 12/16/14 Status: Completedsertraline 100 mg oral tablet 1 tab(s), Oral, Daily, # 30 tab(s), 5 Refill(s), Start Date: 10/20/15 9:40:24 CDT, Pharmacy: [address] Start Date: 10/20/15 Status: Orderedsertraline 100 mg oral tablet 1 tab(s), Oral, Daily, # 30 tab(s), 5 Refill(s), Start Date: 10/19/13 10:22:00 CDT, Pharmacy: [address] Start Date: 10/19/13 Stop Date: 04/17/14 Status: Completedsertraline 100 mg oral tablet 1 tab(s), Oral, Daily, # 30 tab(s), 5 Refill(s), Start Date: 04/18/15 7:50:37 BRUSHER TENDER, [facility]acy: [address] Start Date: 04/18/15 Stop Date: 10/20/15 Status: Completedsertraline 100 mg oral tablet 1 tab(s), Oral, Daily, # 30 tab(s), 5 Refill(s), Start Date: 04/17/14 8:43:04 BRUSHER TENDER, [facility]acy[place] [address] Start Date: 04/17/14 Stop Date: 10/14/14 Status: Completedsertraline 100 mg oral tablet 1 tab(s), Oral, Daily, # 30 tab(s), 5 Refill(s), Start Date: 10/14/14 8:42:41 CDT, [place] Start Date: 10/14/14 Stop Date: 04/18/15 Status: Completedsertraline 100 mg oral tablet 1 tab(s), Oral, Daily, # 30 tab(s), 0 Refill(s) Start Date: 10/08/13 Stop Date: 10/19/13 Status: DiscontinuedTekturna 300 mg oral tablet 1 tab(s), Oral, Daily, # 30 tab(s), 5 Refill(s), Start Date: 12/16/14 8:52:16 CDT, [place]acy[place] Start Date: 12/16/14 Stop Date: 06/10/15 Status: CompletedTekturna 300 mg oral tablet 1 tab(s), Oral, Daily, # 30 tab(s), 0 Refill(s) Start Date: 10/08/13 Stop Date: 12/20/13 Status: DiscontinuedTekturna 300 mg oral tablet 1 tab(s), Oral, Daily, # 30 tab(s), 5 Refill(s), Start Date: 12/20/13 9:40:00 CDT, Pharmacy: [address] Start Date: 12/20/13 Stop Date: 06/17/14 Status: CompletedTekturna 300 mg oral tablet 1 tab(s), Oral, Daily, # 30 tab(s), 5 Refill(s), Start Date: 06/10/15 13:38:43 BRUSHER TENDER, [facility]acy: [address] Start Date: 06/10/15 Status: OrderedTekturna 300 mg oral tablet 1 tab(s), Oral, Daily, # 30 tab(s), 5 Refill(s), Start Date: 06/17/14 9:14:19 BRUSHER TENDER, [facility] [address] [place] Start Date: 06/17/14 Stop Date: 12/16/14 Status: Completed Results No data available for this section Immunizations No data available for this section Procedures Procedure Date Related Diagnosis Body Site Cholecystectomy Knee replacement Lumpectomy Tonsillectomy and adenoidectomy Social History No data available for this section Assessment and Plan No data available for this section
[2016-10-25 12:49] VITALS: BP 161/92
== END 2016-10-25 12:21 | disposition home or self-care (01) ==
LOC: AMB 12:20
PROVIDERS: ATTEND Ophthalmology
PROC: 085J3ZZ Destruction of Right Lens, Percutaneous Approach (ICD-10-PCS; principal; 2016-10-25 13:40)
DX: H26.491 Other secondary cataract, right eye (principal); E11.9 Type 2 diabetes mellitus without complications; I10 Essential (primary) hypertension; E78.00 Pure hypercholesterolemia, unspecified; E03.9 Hypothyroidism, unspecified; F41.9 Anxiety disorder, unspecified